=== PATIENT | female | born 1975 | race American Indian/Alaskan Native ===

== ENCOUNTER 2017-09-03 14:06 | Emergency (ER) | payer SELFPAY | END 2017-09-03 16:14 | disposition left against medical advice (07) | LOC: ED 14:06 | DX: R51 Headache (principal); Z53.21 Procedure and treatment not carried out due to patient leaving prior to being seen by health care provider ==

== ENCOUNTER 2017-12-05 11:15 | Inpatient (IN) | payer MEDICAID ==
[2017-12-05] MEDS ORDERED: ROBITUSSIN AC PO ONE (11:34)
[2017-12-05 12:13] LABS: Basophils % (Auto) 0.5 % (0.0-1.8); Eosinophils # (Auto) 0.2 K/mm3 (0.0-0.4); Eosinophils % (Auto) 1.4 % (0.0-4.3); Hematocrit 37.5 % (30.3-42.9); Hemoglobin 12.3 gm/dl (10.1-14.3); Lymphocytes # (Auto) 3.6 K/mm3 (1.2-5.4); Lymphocytes % (Auto) 33.3 % (13.4-35.0); Mean Corpuscular HGB Conc 33 % (30-34); Mean Corpuscular Hemoglobin 28 pg (28-32); Mean Corpuscular Volume 85 fl (79-97); Monocytes # (Auto) 0.3 K/mm3 (0.0-0.8); Monocytes % (Auto) 2.8 % (0.0-7.3); Platelet Count 355 K/mm3 (140-440); Red Blood Count 4.41 M/mm3 (3.65-5.03); Red Cell Distribution Width 13.8 % (13.2-15.2)
[2017-12-05 12:26] LABS: INR 0.91 (0.87-1.13); Partial Thromboplastin Time 25.5 Sec. (24.2-36.6)
[2017-12-05 12:31] LABS: Alanine Aminotransferase 11 units/L (7-56); Albumin 4.3 g/dL (3.9-5); BUN/Creatinine Ratio 11; Blood Urea Nitrogen 9 mg/dL (7-17); Calcium 8.6 mg/dL (8.4-10.2); Hemolysis Index 9
--- NOTE | 2017-12-05 12:55 | Emergency Department Report ---
HPI - General Chief Complaint: Dyspnea/Respdistress Time Seen by Provider: 12/05/17 11:34 - HPI HPI: 42-year-old female presents to the emergency department via EMS from home with complaint of shortness of breath, wheezing and a dry cough with coughing fits that she believes is an asthma exacerbation that started this morning. Patient does have a history of known asthma and has been intubated multiple times in the past secondary to her asthma. She received 7.5 mg of albuterol, 20 mg of Decadron and 2 mg of magnesium in route with EMS without much relief at first. She denies any tobacco or illicit drug use or abuse. She denies any fever, nausea, vomiting, chest pain but does say that she has different body aches secondary to this incessant cough. No recent travel or sick contacts at home. Her PCP is a Dr Saunders. ED Past Medical Hx - Past Medical History Previous Medical History?: Yes Hx Asthma: Yes - Surgical History Past Surgical History?: No - Social History Smoking Status: Never Smoker Substance Use Type: None - Medications Home Medications: Home Medications Medication Instructions Recorded Confirmed Last Taken Type Advair 500-50 Diskus 1 dose INHALATION BID 12/05/17 12/05/17 Unknown History Amitriptyline 10 mg PO HS 12/05/17 12/05/17 Unknown History Desmopressin 0.2 mg PO HS 12/05/17 12/05/17 Unknown History Elmiron 100 mg PO DAILY 12/05/17 12/05/17 Unknown History Klor-Con 20 mg PO DAILY 12/05/17 12/05/17 Unknown History Levothyroxine 88 mcg PO DAILY 12/05/17 12/05/17 Unknown History Loratadine 10 mg PO DAILY 12/05/17 12/05/17 Unknown History Pravastatin 40 mg PO HS 12/05/17 12/05/17 Unknown History ED Review of Systems ROS: Stated complaint: YASSINE Other details as noted in HPI Comment: All other systems reviewed and negative Constitutional: denies: chills, fever Eyes: denies: eye pain, eye discharge, vision change ENT: denies: ear pain, throat pain Respiratory: cough, shortness of breath, SOB with exertion, wheezing Cardiovascular: denies: palpitations, edema Gastrointestinal: denies: abdominal pain, nausea, diarrhea Genitourinary: denies: urgency, dysuria, discharge Musculoskeletal: myalgia. denies: joint swelling Skin: denies: rash, lesions Neurological: denies: headache, weakness, paresthesias Physical Exam - Physical Exam Vital Signs: Vital Signs 12/05/17 12/05/17 11:27 11:45 Temperature 98 F Pulse Rate 93 H 135 H Respiratory 16 30 H Rate Blood Pressure 135/93 Blood Pressure 124/96 [Left] O2 Sat by Pulse 100 92 Oximetry Physical Exam: GENERAL: The patient is well-developed well-nourished. HENT: Normocephalic. Atraumatic. Patient has moist mucous membranes. EYES: Extraocular motions are intact. Pupils equal reactive to light bilaterally. NECK: Supple. Trachea is midline. CHEST/LUNGS: There is mild to moderate wheezing throughout the chest. The patient has a bronchospastic cough with coughing fits. There is tachypnea and accessory muscle use. There is respiratory distress noted. HEART/CARDIOVASCULAR: Regular. There is moderate to severe tachycardia. There is no murmur. ABDOMEN: Abdomen is soft, nontender. Patient has normal bowel sounds. There is no abdominal distention. SKIN: Skin is warm and dry. NEURO: The patient is awake, alert, and oriented. The patient is cooperative. The patient has no focal neurologic deficits. The patient has normal speech. MUSCULOSKELETAL: There is no tenderness or deformity. There is no evidence of acute injury. ED Course Vital Signs 12/05/17 12/05/17 11:27 11:45 Temperature 98 F Pulse Rate 93 H 135 H Respiratory 16 30 H Rate Blood Pressure 135/93 Blood Pressure 124/96 [Left] O2 Sat by Pulse 100 92 Oximetry - ABG Interpretation Ph: [phone] PCO2: 20 PO2: 115 Bicarbonate: 16 Interpretation: respiratory alkalosis, metabolic alkalosis ED Medical Decision Making - Lab Data Result diagrams: 12/05/17 11:44 12/05/17 11:44 - EKG Data -: EKG Interpreted by Me EKG shows normal: sinus rhythm, axis, intervals, QRS complexes, ST-T waves Rate: tachycardia (114 bpm) - EKG Data When compared to previous EKG there are: previous EKG unavailable Interpretation: other (sinus tachycardia) - Radiology Data Radiology results: image reviewed interpreted by me: Chest x-ray does not show any acute process. There are no pleural effusions, obvious pneumonia and there is no pneumothorax. - Medical Decision Making Patient came in with bronchospasm and a severe dry cough with coughing fits and in respiratory distress. She had already received some steroids, magnesium and breathing treatments upon arrival. Patient was placed on BiPAP and continued to improve over the next 30 minutes to 1 hour. She has improved with the Bipap but still appears dependent on using it at this time. Chest x-ray does not show any acute process. Labs show some hypokalemia with potassium 3.1. The patient will require admission for further evaluation, serial steroids and nebs , and has been accepted for admission by the hospitalist, Dr Garcia. - Differential Diagnosis Asthma, Bronchitis, Pneumonia, PE Critical Care Time: Yes Critical care time in (mins) excluding proc time.: 35 Critical care attestation.: If time is entered above; I have spent that time in minutes in the direct care of this critically ill patient, excluding procedure time. Critical care time was spent on this patient and doing her initial evaluation, multiple re- evaluations, ordering interpretation of labs and imaging, BiPAP/Vent management. Critical Care Time: 35 minutes ED Disposition Clinical Impression: Hypokalemia Acute respiratory failure Qualifiers: Respiratory failure complication: hypoxia Qualified Code(s): J96.01 - Acute respiratory failure with hypoxia Status asthmaticus Qualifiers: Asthma severity: moderate Asthma persistence: unspecified Qualified Code(s): J45.902 - Unspecified asthma with status asthmaticus Disposition: OP ADMIT IP TO THIS HOSP Is pt being admited?: Yes Condition: Serious Time of Disposition: 14:57
--- NOTE | 2017-12-05 13:03 | History and Physical Report ---
History of Present Illness Chief complaint: I cant breathe History of present illness: 42 YO Female with Asthma, Obesity presents to ED for evaluation. Pt states that she has experienced shortness of breath, nonproductive cough and wheezing for the pat 2 days with worsening symptoms over the past 1 day. Pt symptoms not improved with increased nebulizer therapy. Pt was subsequently transported to [facility] for further care and evaluation. Pt seen and evaluated in ED and found to have Status Asthmaticus with Acute respiratory failure. Pt admitted to medical floor. No reports of fever, chills, CP, Palpitations, NVD, Syncope, Trauma, unilateral leg swelling, calf pain, prolonged immobility/travel, individual/ family history of DVT/PE. - Past History Past Medical History: other (Asthma.) Past Surgical History: No surgical history, Other (reviewed) Social history: single. denies: smoking, alcohol abuse Family history: hypertension Medications and Allergies Allergies Allergy/AdvReac Type Severity Reaction Status Date / Time granisetron [From Kytril] Allergy Angioedema Verified 12/05/17 11:32 topiramate [From Topamax] Allergy Angioedema Verified 12/05/17 11:32 Home Medications Medication Instructions Recorded Confirmed Last Taken Type Advair 500-50 Diskus 1 dose INHALATION BID 12/05/17 12/05/17 Unknown History Amitriptyline 10 mg PO HS 12/05/17 12/05/17 Unknown History Desmopressin 0.2 mg PO HS 12/05/17 12/05/17 Unknown History Elmiron 100 mg PO DAILY 12/05/17 12/05/17 Unknown History Klor-Con 20 mg PO DAILY 12/05/17 12/05/17 Unknown History Levothyroxine 88 mcg PO DAILY 12/05/17 12/05/17 Unknown History Loratadine 10 mg PO DAILY 12/05/17 12/05/17 Unknown History Pravastatin 40 mg PO HS 12/05/17 12/05/17 Unknown History Review of Systems Constitutional: no weight loss, no weight gain, no fever, no chills, no sweats, no night sweats Ears, nose, mouth and throat: no ear pain, no ear discharge, no tinnitis, no decreased hearing, no nose pain, no nasal congestion, no nasal discharge Breasts: no change in shape, no swelling, no mass Cardiovascular: no chest pain, no orthopnea, no palpitations, no rapid/ irregular heart beat, no edema, no syncope, no lightheadedness Respiratory: cough, shortness of breath, wheezing, no excessive sputum, no pain on inspiration, no sleep apnea Gastrointestinal: no nausea, no vomiting, no diarrhea, no constipation Genitourinary Female: no pelvic pain, no flank pain, no menorrhagia, no dysuria , no urinary frequency, no urgency Rectal: no pain, no incontinence, no bleeding Musculoskeletal: no neck stiffness, no neck pain, no shooting arm pain, no arm numbness/tingling, no low back pain, no shooting leg pain Integumentary: no rash, no pruritis, no redness, no sores, no wounds Neurological: no head injury, no transient paralysis, no paralysis, no weakness , no parathesias, no numbness, no tingling Psychiatric: no anxiety, no memory loss, no change in sleep habits, no sleep disturbances, no insomnia, no hypersomnia, no change in appetite, no change in libido Endocrine: no cold intolerance, no heat intolerance, no polyphagia, no excessive thirst, no polydipsia, no polyuria, no nocturia Hematologic/Lymphatic: no easy bruising, no easy bleeding, no lymphadenopathy, no lymphedema Allergic/Immunologic: no urticaria, no allergic rhinitis, no persistent infections, no anaphylaxis, no angioedema Exam - Constitutional Vitals: Temp Pulse Resp BP Pulse Ox 98 F 93 H 16 135/93 100 12/05/17 11:27 12/05/17 11:27 12/05/17 11:27 12/05/17 11:27 12/05/17 11:27 General appearance: Present: no acute distress, well-nourished - EENT Eyes: Present: PERRL ENT: hearing intact, clear oral mucosa - Neck Neck: Present: supple, normal ROM - Respiratory Respiratory effort: labored Respiratory: bilateral: diminished, wheezing - Cardiovascular Heart Sounds: Present: S1 & S2. Absent: rub, click - Extremities Extremities: pulses symmetrical, No edema Peripheral Pulses: within normal limits - Abdominal General gastrointestinal: Present: soft, non-tender, non-distended, normal bowel sounds Female genitourinary: Present: normal - Integumentary Integumentary: Present: clear, warm, dry - Musculoskeletal Musculoskeletal: gait normal, strength equal bilaterally - Psychiatric Psychiatric: appropriate mood/affect, intact judgment & insight - Neurologic Neurologic: CNII-XII intact, moves all extremities Results - Labs CBC & Chem 7: 12/05/17 11:44 12/05/17 11:44 Labs: Abnormal lab results 12/05/17 Range/Units 11:44 Potassium 3.1 L (3.6-5.0) mmol/L Carbon Dioxide 20 L (22-30) mmol/L Glucose 175 H (65-100) mg/dL Magnesium 2.50 H (1.7-2.3) mg/dL Assessment and Plan - Patient Problems (1) Status asthmaticus Current Visit: Yes Status: Acute Qualifiers: Asthma severity: moderate Plan to address problem: IV steroid therapy, supplemental oxygen, nebulizer therapy, NIPPV, magnesium sulfate, IV antibiotic therapy (2) Acute respiratory failure Current Visit: Yes Status: Acute Qualifiers: Respiratory failure complication: hypoxia Qualified Code(s): J96.01 - Acute respiratory failure with hypoxia Plan to address problem: Supplemental oxygen, nebulizer therapy, NIPPV, supportive care (3) Obesity Current Visit: Yes Status: Acute Qualifiers: Body mass index: BMI 30.0-30.9 Plan to address problem: Increased physical activity at d/c, balanced diet. (4) Hypothyroid Current Visit: Yes Status: Acute Qualifiers: Hypothyroidism type: acquired Qualified Code(s): E03.9 - Hypothyroidism, unspecified Plan to address problem: Resume synthroid, (5) DVT prophylaxis Current Visit: Yes Status: Acute Plan to address problem: scd to ble while in bed.
[2017-12-05] MEDS ORDERED: ZOFRAN IV PRN (13:04)
[2017-12-05] MEDS ORDERED: SODIUM CHLORIDE FLUSH SYRINGE 10 ML IV PRN (13:04)
[2017-12-05] MEDS ORDERED: MAGNESIUM SULFATE IV ONE (13:05)
[2017-12-05] MEDS ORDERED: PROVENTIL IH ONE ×2 (13:34→14:09)
[2017-12-05] MEDS ORDERED: ATROVENT IH ONE ×2 (13:35→14:09)
--- NOTE | 2017-12-05 14:25 | XRay Report ---
FINAL REPORT PROCEDURE: XR CHEST 1V AP TECHNIQUE: Chest radiograph anteroposterior view. CPT 32344 HISTORY: SOB COMPARISON: No prior studies are available for comparison. FINDINGS: Heart: Normal. Mediastinum/Vessels: Normal. Lungs/Pleural space: No infiltrate, effusion, or pneumothorax. Bony thorax: No acute osseous abnormality. Life support devices: None. IMPRESSION: No radiographic evidence of acute cardiopulmonary abnormality.
[2017-12-05] MEDS: TYLENOL PO PRN ×2 (16:10→20:33)
[2017-12-05] MEDS: PULMICORT IH SCH (20:03)
[2017-12-05] MEDS: BROVANA NEBU IH SCH (20:03)
[2017-12-05] MEDS: PROVENTIL IH PRN (20:16)
[2017-12-05] MEDS ORDERED: K-DUR PO ONE (21:16)
[2017-12-05] MEDS: DDAVP PO SCH (21:59)
[2017-12-05] MEDS: ELAVIL PO SCH (22:00)
[2017-12-05] MEDS: SODIUM CHLORIDE FLUSH SYRINGE 10 ML IV SCH (22:00)
[2017-12-05] MEDS ORDERED: ADVAIR INHALATION SCH (22:00)
[2017-12-05] MEDS: PRAVACHOL PO SCH (22:00)
[2017-12-05] MEDS ORDERED: AMITRIPTYLINE 10 MG PO SCH (22:00)
[2017-12-05] MEDS ORDERED: NON-FORMULARY (Pravastatin 40 MG) PO SCH (22:00)
[2017-12-05] MEDS ORDERED: DESMOPRESSIN 0.2 MG PO SCH (22:00)
[2017-12-06] MEDS: PERCOCET 5/325 PO PRN ×2 (03:14→09:49)
[2017-12-06] MEDS: SYNTHROID PO SCH (06:00)
[2017-12-06] MEDS: PROVENTIL IH PRN (06:23)
[2017-12-06] MEDS: BROVANA NEBU IH SCH ×2 (08:32→20:17)
[2017-12-06] MEDS: PULMICORT IH SCH ×2 (08:32→20:17)
[2017-12-06] MEDS: PROTONIX PO SCH (09:50)
[2017-12-06] MEDS: CLARITIN PO SCH (09:50)
[2017-12-06] MEDS: K-DUR PO SCH (09:51)
[2017-12-06] MEDS ORDERED: POTASSIUM CHLORIDE 20 MG PO SCH (10:00)
[2017-12-06] MEDS ORDERED: LEVOTHYROXINE 88 MCG PO SCH (10:00)
[2017-12-06] MEDS ORDERED: ELMIRON 100 MG PO SCH (10:00)
[2017-12-06] MEDS ORDERED: NON-FORMULARY (Loratadine 10 MG) PO SCH (10:00)
[2017-12-06] MEDS: SODIUM CHLORIDE FLUSH SYRINGE 10 ML IV SCH ×2 (11:11→22:45)
--- NOTE | 2017-12-06 11:38 | Progress Note ---
Assessment and Plan Assessment and plan: Acute asthma exacerbation. IV steroid therapy, supplemental oxygen, nebulizer therapy, NIPPV, magnesium sulfate, IV antibiotic therapy Acute hypoxemic respiratory failure. Supplemental oxygen, nebulizer therapy, NIPPV, supportive care Hypothyroidism. Cont. Synthroid Migraine h/a. Resume home imitrex hypokalemia. replete k History Interval history: No new issues. C/O h/a Hospitalist Physical - Constitutional Vitals: Temp Pulse Resp BP Pulse Ox 98.0 F 108 H 18 129/71 98 12/06/17 06:24 12/06/17 08:46 12/06/17 08:46 12/06/17 06:24 12/06/17 08:33 General appearance: Present: no acute distress, well-nourished - EENT Eyes: Present: PERRL, EOM intact ENT: hearing intact, clear oral mucosa, dentition normal - Neck Neck: Present: supple, normal ROM - Respiratory Respiratory effort: normal Respiratory: bilateral: diminished, wheezing - Cardiovascular Rhythm: regular Heart Sounds: Present: S1 & S2. Absent: gallop, rub - Extremities Extremities: no ischemia, No edema, Full ROM - Abdominal General gastrointestinal: soft, non-tender, non-distended, normal bowel sounds - Integumentary Integumentary: Present: clear, warm, dry - Neurologic Neurologic: CNII-XII intact, moves all extremities Results - Labs CBC & Chem 7: 12/05/17 11:44 12/05/17 11:44 Labs: Laboratory Last Values WBC 10.7 K/mm3 (4.5-11.0) 12/05/17 11:44 RBC 4.41 M/mm3 (3.65-5.03) 12/05/17 11:44 Hgb 12.3 gm/dl (10.1-14.3) 12/05/17 11:44 Hct 37.5 % (30.3-42.9) 12/05/17 11:44 MCV 85 fl (79-97) 12/05/17 11:44 MCH 28 pg (28-32) 12/05/17 11:44 MCHC 33 % (30-34) 12/05/17 11:44 RDW 13.8 % (13.2-15.2) 12/05/17 11:44 Plt Count 355 K/mm3 (140-440) 12/05/17 11:44 Lymph % (Auto) 33.3 % (13.4-35.0) 12/05/17 11:44 [place] % (Auto) 2.8 % (0.0-7.3) 12/05/17 11:44 Eos % (Auto) 1.4 % (0.0-4.3) 12/05/17 11:44 Baso % (Auto) 0.5 % (0.0-1.8) 12/05/17 11:44 Lymph # 3.6 K/mm3 (1.2-5.4) 12/05/17 11:44 [place] # 0.3 K/mm3 (0.0-0.8) 12/05/17 11:44 Eos # 0.2 K/mm3 (0.0-0.4) 12/05/17 11:44 Baso # 0.0 K/mm3 (0.0-0.1) 12/05/17 11:44 Seg Neutrophils % 62.0 % (40.0-70.0) 12/05/17 11:44 Seg Neutrophils # 6.7 K/mm3 (1.8-7.7) 12/05/17 11:44 PT 12.7 Sec. (12.2-14.9) 12/05/17 11:44 INR 0.91 (0.87-1.13) 12/05/17 11:44 APTT 25.5 Sec. (24.2-36.6) 12/05/17 11:44 D-Dimer 160.04 ng/mlDDU (0-234) 12/05/17 11:44 POC ABG pH 7.517 (7.35-7.45) H 12/05/17 14:00 POC ABG pCO2 20.6 (35-45) L 12/05/17 14:00 POC ABG pO2 115 (80-105) H 12/05/17 14:00 POC ABG HCO3 16.7 12/05/17 14:00 POC ABG Total CO2 17 12/05/17 14:00 POC ABG O2 Sat 99 12/05/17 14:00 POC ABG Base Excess -6 12/05/17 14:00 FiO2 21 % 12/05/17 14:00 Sodium 142 mmol/L (137-145) 12/05/17 11:44 Potassium 3.1 mmol/L (3.6-5.0) L 12/05/17 11:44 Chloride 100.8 mmol/L (98-107) 12/05/17 11:44 Carbon Dioxide 20 mmol/L (22-30) L 12/05/17 11:44 Anion Gap 24 mmol/L 12/05/17 11:44 BUN 9 mg/dL (7-17) 12/05/17 11:44 Creatinine 0.8 mg/dL (0.7-1.2) 12/05/17 11:44 Estimated GFR > 60 ml/min 12/05/17 11:44 BUN/Creatinine Ratio 11 % 12/05/17 11:44 Glucose 175 mg/dL (65-100) H 12/05/17 11:44 Calcium 8.6 mg/dL (8.4-10.2) 12/05/17 11:44 Magnesium 2.50 mg/dL (1.7-2.3) H 12/05/17 11:44 Total Bilirubin 0.20 mg/dL (0.1-1.2) 12/05/17 11:44 AST 15 units/L (5-40) 12/05/17 11:44 ALT 11 units/L (7-56) 12/05/17 11:44 Alkaline Phosphatase 77 units/L (35-129) 12/05/17 11:44 Troponin T < 0.010 ng/mL (0.00-0.029) 12/05/17 11:44 Total Protein 6.9 g/dL (6.3-8.2) 12/05/17 11:44 Albumin 4.3 g/dL (3.9-5) 12/05/17 11:44 Albumin/Globulin Ratio 1.7 % 12/05/17 11:44 HCG, Qual Negative (Negative) 12/05/17 11:44
[2017-12-06] MEDS: IMITREX PO PRN ×2 (13:08→22:37)
[2017-12-06] MEDS: PRAVACHOL PO SCH (22:37)
[2017-12-06] MEDS: DDAVP PO SCH (22:44)
[2017-12-06] MEDS: ELAVIL PO SCH (22:45)
[2017-12-07] MEDS: SYNTHROID PO SCH (06:31)
[2017-12-07] MEDS: PULMICORT IH SCH ×2 (08:31→19:37)
[2017-12-07] MEDS: BROVANA NEBU IH SCH ×2 (08:31→19:38)
[2017-12-07] MEDS: PROTONIX PO SCH (09:58)
[2017-12-07] MEDS: CLARITIN PO SCH (09:58)
[2017-12-07] MEDS: SODIUM CHLORIDE FLUSH SYRINGE 10 ML IV SCH ×2 (09:58→21:11)
[2017-12-07] MEDS: K-DUR PO SCH (09:58)
[2017-12-07] MEDS: IMITREX PO PRN (10:31)
--- NOTE | 2017-12-07 10:37 | Progress Note ---
Assessment and Plan Assessment and plan: Acute asthma exacerbation. IV steroid therapy, supplemental oxygen, nebulizer therapy, NIPPV, Empiric IV antibiotic therapy Acute hypoxemic respiratory failure. Supplemental oxygen, nebulizer therapy, NIPPV, supportive care Hypothyroidism. Cont. Synthroid Migraine h/a. Resolved with imitrex hypokalemia. replete k as needed History Interval history: No new issues. Breathing better. H/a resolved Hospitalist Physical - Constitutional Vitals: Temp Pulse Resp BP Pulse Ox 98.7 F 97 H 20 127/77 98 12/06/17 17:12 12/07/17 08:41 12/07/17 08:41 12/06/17 17:12 12/07/17 08:31 General appearance: Present: no acute distress, well-nourished - EENT Eyes: Present: PERRL, EOM intact ENT: hearing intact, clear oral mucosa, dentition normal - Neck Neck: Present: supple, normal ROM - Respiratory Respiratory effort: normal Respiratory: bilateral: diminished, wheezing - Cardiovascular Rhythm: regular Heart Sounds: Present: S1 & S2. Absent: gallop, rub - Extremities Extremities: no ischemia, No edema, Full ROM - Abdominal General gastrointestinal: soft, non-tender, non-distended, normal bowel sounds - Integumentary Integumentary: Present: clear, warm, dry - Neurologic Neurologic: CNII-XII intact, moves all extremities Results - Labs CBC & Chem 7: 12/05/17 11:44 12/05/17 11:44 Labs: Laboratory Last Values WBC 10.7 K/mm3 (4.5-11.0) 12/05/17 11:44 RBC 4.41 M/mm3 (3.65-5.03) 12/05/17 11:44 Hgb 12.3 gm/dl (10.1-14.3) 12/05/17 11:44 Hct 37.5 % (30.3-42.9) 12/05/17 11:44 MCV 85 fl (79-97) 12/05/17 11:44 MCH 28 pg (28-32) 12/05/17 11:44 MCHC 33 % (30-34) 12/05/17 11:44 RDW 13.8 % (13.2-15.2) 12/05/17 11:44 Plt Count 355 K/mm3 (140-440) 12/05/17 11:44 Lymph % (Auto) 33.3 % (13.4-35.0) 12/05/17 11:44 [place] % (Auto) 2.8 % (0.0-7.3) 12/05/17 11:44 Eos % (Auto) 1.4 % (0.0-4.3) 12/05/17 11:44 Baso % (Auto) 0.5 % (0.0-1.8) 12/05/17 11:44 Lymph # 3.6 K/mm3 (1.2-5.4) 12/05/17 11:44 [place] # 0.3 K/mm3 (0.0-0.8) 12/05/17 11:44 Eos # 0.2 K/mm3 (0.0-0.4) 12/05/17 11:44 Baso # 0.0 K/mm3 (0.0-0.1) 12/05/17 11:44 Seg Neutrophils % 62.0 % (40.0-70.0) 12/05/17 11:44 Seg Neutrophils # 6.7 K/mm3 (1.8-7.7) 12/05/17 11:44 PT 12.7 Sec. (12.2-14.9) 12/05/17 11:44 INR 0.91 (0.87-1.13) 12/05/17 11:44 APTT 25.5 Sec. (24.2-36.6) 12/05/17 11:44 D-Dimer 160.04 ng/mlDDU (0-234) 12/05/17 11:44 POC ABG pH 7.517 (7.35-7.45) H 12/05/17 14:00 POC ABG pCO2 20.6 (35-45) L 12/05/17 14:00 POC ABG pO2 115 (80-105) H 12/05/17 14:00 POC ABG HCO3 16.7 12/05/17 14:00 POC ABG Total CO2 17 12/05/17 14:00 POC ABG O2 Sat 99 12/05/17 14:00 POC ABG Base Excess -6 12/05/17 14:00 FiO2 21 % 12/05/17 14:00 Sodium 142 mmol/L (137-145) 12/05/17 11:44 Potassium 3.1 mmol/L (3.6-5.0) L 12/05/17 11:44 Chloride 100.8 mmol/L (98-107) 12/05/17 11:44 Carbon Dioxide 20 mmol/L (22-30) L 12/05/17 11:44 Anion Gap 24 mmol/L 12/05/17 11:44 BUN 9 mg/dL (7-17) 12/05/17 11:44 Creatinine 0.8 mg/dL (0.7-1.2) 12/05/17 11:44 Estimated GFR > 60 ml/min 12/05/17 11:44 BUN/Creatinine Ratio 11 % 12/05/17 11:44 Glucose 175 mg/dL (65-100) H 12/05/17 11:44 Calcium 8.6 mg/dL (8.4-10.2) 12/05/17 11:44 Magnesium 2.50 mg/dL (1.7-2.3) H 12/05/17 11:44 Total Bilirubin 0.20 mg/dL (0.1-1.2) 12/05/17 11:44 AST 15 units/L (5-40) 12/05/17 11:44 ALT 11 units/L (7-56) 12/05/17 11:44 Alkaline Phosphatase 77 units/L (35-129) 12/05/17 11:44 Troponin T < 0.010 ng/mL (0.00-0.029) 12/05/17 11:44 Total Protein 6.9 g/dL (6.3-8.2) 12/05/17 11:44 Albumin 4.3 g/dL (3.9-5) 12/05/17 11:44 Albumin/Globulin Ratio 1.7 % 12/05/17 11:44 HCG, Qual Negative (Negative) 12/05/17 11:44
[2017-12-07] MEDS: PROVENTIL IH PRN (12:19)
[2017-12-07] MEDS: ELAVIL PO SCH (21:09)
[2017-12-07] MEDS: DDAVP PO SCH (21:10)
[2017-12-07] MEDS: PRAVACHOL PO SCH (21:10)
[2017-12-08] MEDS: SYNTHROID PO SCH (05:24)
[2017-12-08 07:09] VITALS: BP 102/62
[2017-12-08] MEDS: BROVANA NEBU IH SCH (08:23)
[2017-12-08] MEDS: PULMICORT IH SCH (08:23)
[2017-12-08] MEDS: PROTONIX PO SCH (09:31)
[2017-12-08] MEDS: K-DUR PO SCH (09:31)
[2017-12-08] MEDS: SODIUM CHLORIDE FLUSH SYRINGE 10 ML IV SCH (09:32)
[2017-12-08] MEDS: CLARITIN PO SCH (09:32)
[2017-12-08] MEDS: IMITREX PO PRN (11:22)
--- NOTE | 2017-12-08 11:45 | Discharge Summary ---
Providers - Providers Date of Admission: 12/05/17 13:04 Date of discharge: 12/08/17 Attending physician: ODILON DELONG MD Primary care physician: DISASTER DIRECTOR Hospitalization Reason for admission: Acute asthma exacerbation Condition: Serious Pertinent studies: Chest x-ray acute cardiopulmonary process identified Hospital course: 42 YO Female with Asthma, Obesity presents to ED for evaluation. Pt states that she has experienced shortness of breath, nonproductive cough and wheezing for the pat 2 days with worsening symptoms over the past 1 day. Pt symptoms not improved with increased nebulizer therapy. Pt was subsequently transported to [facility] for further care and evaluation. Pt seen and evaluated in ED and found to have Status Asthmaticus with Acute respiratory failure. Pt admitted to medical floor. No reports of fever, chills, CP, Palpitations, NVD, Syncope, Trauma, unilateral leg swelling, calf pain, prolonged immobility/travel, individual/ family history of DVT/PE. Patient was admitted to the floor for the management of acute respiratory failure secondary to acute asthmatic exacerbation. And was treated appropriately. Patient also presents subsided, Patient was breathing comfortably on room air. Patient was discharged home starting dose of steroids. She said she has nebulizer machine and appropriate medications at home. Patient was hemodynamically stable at the time of discharge. Disposition: DC-01 TO HOME OR SELFCARE Time spent for discharge: 34 minutes - Discharge Diagnoses (1) Acute respiratory failure Status: Acute Qualifiers: Respiratory failure complication: hypoxia Qualified Code(s): J96.01 - Acute respiratory failure with hypoxia (2) Hypokalemia Status: Acute (3) Hypothyroid Status: Chronic Qualifiers: Hypothyroidism type: acquired Qualified Code(s): E03.9 - Hypothyroidism, unspecified (4) Obesity Status: Chronic Qualifiers: Body mass index: BMI 30.0-30.9 (5) Status asthmaticus Status: Acute Qualifiers: Asthma severity: moderate Asthma persistence: unspecified Qualified Code( s): J45.902 - Unspecified asthma with status asthmaticus Core Measure Documentation - Palliative Care Palliative Care/ Comfort Measures: Not Applicable - Core Measures Any of the following diagnoses?: none Exam - Physical Exam Narrative exam: Not in cardiopulmonary distress. The patient is obese. Vital signs as documented. Head exam is unremarkable. No scleral icterus . Neck is without jugular venous distension, thyromegaly, or carotid bruits. Lungs are clear to auscultation. Cardiac exam reveals regular rate and Rhythm. First and second heart sounds normal. No murmurs, rubs or gallops. Abdominal exam reveals normal bowel sounds, no masses, no organomegaly and no aortic enlargement. Extremities are nonedematous and both femoral and pedal pulses are normal. 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 No focal weakness. - Constitutional Vitals: Temp Pulse Resp BP Pulse Ox 98.6 F 77 16 102/62 97 12/08/17 06:19 12/08/17 08:26 12/08/17 08:26 12/08/17 06:19 12/08/17 06:19 Plan Activity: no restrictions Weight Bearing Status: Full Weight Bearing Diet: low fat Additional Instructions: follow up at [facility] in 1-2 weeks Follow up with: PRIMARY CARE, [Primary Care Provider] - 3-5 Days Prescriptions: Prednisone [predniSONE 10 mg (6-Day Pack, 21 Tabs)] 10 mg PO .TAPER #1 tab.ds.pk
== END 2017-12-08 13:30 | disposition home or self-care (01) | DRG 189 ==
LOC: ED 11:15 → 3A 13:04
PROVIDERS: ADMIT Internal Medicine; ATTEND Internal Medicine
PROC: 5A09357 Assistance with Respiratory Ventilation, Less than 24 Consecutive Hours, Continuous Positive Airway Pressure (ICD-10-PCS; principal; 2017-12-05)
PROC: 4A033R1 Measurement of Arterial Saturation, Peripheral, Percutaneous Approach (ICD-10-PCS; 2017-12-05)
DX: J96.01 Acute respiratory failure with hypoxia (principal); E03.9 Hypothyroidism, unspecified; E87.6 Hypokalemia; J45.902 Unspecified asthma with status asthmaticus; G43.909 Migraine, unspecified, not intractable, without status migrainosus; E66.9 Obesity, unspecified; Z68.30 Body mass index [BMI] 30.0-30.9, adult; Z82.49 Family history of ischemic heart disease and other diseases of the circulatory system; Z79.899 Other long term (current) drug therapy
CPT/HCPCS: 36415; 36600; 71045; 80053; 82803; 83735; 84484; 84703; 85025; 85379; 85610; 85730; 93005; 93010; 94640; 94760; A9270-GY; J2920; J3475

== ENCOUNTER 2018-01-31 16:42 | Emergency (ER) | payer MEDICAID, OTHER ==
[2018-01-31] MEDS ORDERED: DILAUDID IV ONE ×3 (16:55→21:20)
[2018-01-31] MEDS ORDERED: REGLAN IV ONE (16:55)
[2018-01-31] MEDS ORDERED: TORADOL IV ONE (16:55)
[2018-01-31] MEDS ORDERED: ZOFRAN IV ONE (16:55)
[2018-01-31] MEDS ORDERED: DILAUDID ONE ×2 (16:59→21:25)
[2018-01-31] MEDS ORDERED: TORADOL ONE (16:59)
[2018-01-31] MEDS ORDERED: ZOFRAN ONE (16:59)
[2018-01-31] MEDS ORDERED: NACL 0.9% 1000 ML 1,000 ML IV ONE (17:00)
[2018-01-31] MEDS ORDERED: NACL 0.9% 1000 ML 1,000 ML ONE (17:00)
[2018-01-31] MEDS ORDERED: BENADRYL IV ONE (17:11)
--- NOTE | 2018-01-31 17:13 | Emergency Department Report ---
HPI - General Chief Complaint: Abdominal Pain Time Seen by Provider: 01/31/18 16:55 - HPI HPI: Room 6 The patient is a 42-year-old female presenting with chief complaint of right lower quadrant abdominal pain. The patient states 2 days ago she developed intermittent pain in the right lower quadrant. The patient states today the pain intensified and became constant in nature. The patient missed to nausea but denies vomiting. She denies any history of dysuria or hematuria. Patient thinks she may have had a subjective fever. Patient denies any other forms of pain. The patient gets her pain score 10/10 Location: Right lower quadrant Duration: 3 Days Quality: Pain Severity:10/10 Modifying factors: [see above] Context: [see above] Mode of transportation: [not driving] ED Past Medical Hx - Past Medical History Hx Seizures: Yes (last sizure 12/01/2017 1st one in 2 years) Hx Asthma: Yes Additional medical history: Hypokalemia, hypercholesterolemia, hypothyroidism, interstitial cystitis - Surgical History Past Surgical History?: Yes Additional Surgical History: Hysterectomy 1993, kidney stone, thyroidectomy - Family History Family history: no significant - Social History Smoking Status: Never Smoker Substance Use Type: None (denies illicit drug use) - Medications Home Medications: Home Medications Medication Instructions Recorded Confirmed Last Taken Type Advair 500-50 Diskus 1 dose INHALATION BID 12/05/17 12/05/17 Unknown History Amitriptyline 10 mg PO HS 12/05/17 12/05/17 Unknown History Desmopressin 0.2 mg PO HS 12/05/17 12/05/17 Unknown History Elmiron 100 mg PO DAILY 12/05/17 12/05/17 Unknown History Klor-Con 20 mg PO DAILY 12/05/17 12/05/17 Unknown History Levothyroxine 88 mcg PO DAILY 12/05/17 12/05/17 Unknown History Loratadine 10 mg PO DAILY 12/05/17 12/05/17 Unknown History Pravastatin 40 mg PO HS 12/05/17 12/05/17 Unknown History Prednisone [predniSONE 10 mg 10 mg PO .TAPER #1 tab.ds.pk 12/08/17 Unknown Rx (6-Day Pack, 21 Tabs)] HYDROcodone/APAP 5-325 [[place] 1 - 2 each PO Q6HR PRN #14 tablet 01/31/18 Unknown Rx 5/325] Ibuprofen [Motrin 800 MG tab] 800 mg PO Q8HR PRN #20 tablet 01/31/18 Unknown Rx Promethazine [Phenergan TAB] 25 mg PO Q6HR PRN #20 tab 01/31/18 Unknown Rx ED Review of Systems ROS: Stated complaint: LRQ PAIN Other details as noted in HPI Constitutional: fever (subjective) Eyes: denies: eye pain ENT: denies: throat pain Respiratory: no symptoms reported Cardiovascular: denies: chest pain Endocrine: no symptoms reported Gastrointestinal: abdominal pain, nausea. denies: vomiting Genitourinary: denies: dysuria, hematuria Musculoskeletal: denies: back pain Neurological: denies: headache Physical Exam - Physical Exam Vital Signs: Vital Signs 01/31/18 17:04 Temperature 98.9 F Pulse Rate 96 H Respiratory 24 Rate Blood Pressure 130/76 O2 Sat by Pulse 97 Oximetry Physical Exam: GENERAL: The patient is well-developed well-nourished female writhing on stretcher appearing to be in significant pain. [] HEENT: Normocephalic. Atraumatic. Extraocular motions are intact. Patient has moist mucous membranes. NECK: Supple. Trachea midline CHEST/LUNGS: Clear to auscultation. There is no respiratory distress noted. HEART/CARDIOVASCULAR: Regular. There is no tachycardia. There is no gallop rub or murmur. ABDOMEN: Abdomen is soft, with tenderness to palpation in the right lower quadrant and right upper quadrant (with greatest pain in the right lower quadrant). Patient has normal bowel sounds. There is no abdominal distention. SKIN: There is no rash. There is no diaphoresis. NEURO: The patient is awake, alert, and oriented. The patient is cooperative. The patient has normal speech MUSCULOSKELETAL: There is no CVA tenderness. There is no evidence of acute injury. ED Course Vital Signs 01/31/18 17:04 Temperature 98.9 F Pulse Rate 96 H Respiratory 24 Rate Blood Pressure 130/76 O2 Sat by Pulse 97 Oximetry ED Medical Decision Making - Lab Data Result diagrams: 01/31/18 17:12 01/31/18 17:12 Laboratory Tests 01/31/18 01/31/18 01/31/18 17:03 17:12 17:12 WBC 8.2 RBC 4.30 Hgb 12.3 Hct 36.6 MCV 85 MCH 29 MCHC 34 RDW 13.8 Plt Count 354 Lymph % (Auto) 41.0 H Baxter % (Auto) 7.9 H Eos % (Auto) 2.8 Baso % (Auto) 0.7 Lymph # 3.4 Baxter # 0.6 Eos # 0.2 Baso # 0.1 Seg Neutrophils % 47.6 Seg Neutrophils # 3.9 Sodium 141 Potassium 3.7 Chloride 104.5 Carbon Dioxide 23 Anion Gap 17 BUN 7 Creatinine 1.0 Estimated GFR > 60 BUN/Creatinine Ratio 7 Glucose 97 Calcium 8.5 Total Bilirubin 0.20 AST 18 ALT 11 Alkaline Phosphatase 68 Total Protein 6.9 Albumin 4.2 Albumin/Globulin Ratio 1.6 Lipase 21 Urine Color Yellow Urine Turbidity Clear Urine pH 6.0 Ur Specific [place] 1.029 Urine Protein <15 mg/dl Urine Glucose (UA) Neg Urine Ketones Neg Urine Blood Mod Urine Nitrite Neg Urine Bilirubin Neg Urine Urobilinogen < 2.0 Ur Leukocyte Esterase Neg Urine WBC (Auto) 1.0 Urine RBC (Auto) 9.0 U Epithel Cells (Auto) 1.0 Urine Mucus Few - Radiology Data Radiology results: report reviewed (CT abdomen and pelvis, pelvic Doppler), image reviewed (CT abdomen and pelvis, pelvic Doppler) [facility] [address] [place] [address] Ultrasound Report Signed Patient: CECILIA MENG MR#: [id number] : 1975 Acct:[id number] Age/Sex: 42 / F ADM Date: 01/31/18 Loc: ED Attending Dr: Ordering Physician: LEIGH BULLARD MD Date of Service: 01/31/18 Procedure(s): US transvaginal Accession Number(s): [id number] cc: LEIGH BULLARD MD FINAL REPORT PROCEDURE: Transvaginal pelvic ultrasound with Doppler. TECHNIQUE: Real-time transvaginal sonography in multiple planes of the pelvis was performed with image documentation. Grayscale, color flow Doppler imaging and velocity spectral waveform analysis of the ovaries was employed (duplex imaging). CPT 16472 and 25104 HISTORY: Pelvic pain. COMPARISON: No prior studies are available for comparison. FINDINGS: The uterus has been removed. There is an ovary near the midline which is probably the right ovary. This ovary contains a complex cyst with septations that measures 1.4 centimeters in diameter. The right ovary also contains some normal appearing follicles. There is normal color flow present in the right ovary. There is also normal Doppler signal present. The left ovary is not visualized. IMPRESSION: Complex cyst in the right ovary. Normal ovarian blood flow. Transcribed By: VICKIE Dictated By: SADE ROBERSON MD Electronically Authenticated By: SADE ROBERSON MD Signed Date/Time: 01/31/182131 DD/ 31 TD/TT: 01/31/182131 [facility] [address] [place] [address] Cat Scan Report Signed Patient: CECILIA MENG MR#: [id number] : 1975 Acct:[id number] Age/Sex: 42 / F ADM Date: 01/31/18 Loc: ED Attending Dr: Ordering Physician: LEIGH BULLARD MD Date of Service: 01/31/18 Procedure(s): CT abdomen pelvis wo/w con Accession Number(s): [id number] cc: LEIGH BULLARD MD FINAL REPORT PROCEDURE: CT abdomen and pelvis without and with contrast. TECHNIQUE: Computerized axial tomography of the abdomen and pelvis was performed without contrast followed by computerized axial tomography of the abdomen and pelvis after the IV injection of iodinated nonionic contrast. HISTORY: Severe right lower quadrant pain. COMPARISON: No prior studies are available for comparison. FINDINGS: The lung bases are clear. There are no pleural effusions. The heart size is normal. The liver, pancreas and spleen appear normal. The gallbladder is present. The adrenal glands are not enlarged. Both kidneys appear normal in size and configuration. The abdominal aorta has a normal caliber. There is no retroperitoneal adenopathy. The unopacified gastrointestinal tract is unremarkable. A normal appendix is visible. The bladder is unremarkable. The uterus has been removed. The regional skeleton appears intact. There may be small cysts in each ovary. The right-sided mass is larger measuring 2.5 centimeters x 2.4 centimeters in cross-section. The regional skeleton appears intact. There is coarse calcification anterior to the vagina. This is of uncertain etiology. Urethral calcifications are not excluded. IMPRESSION: Previous hysterectomy. Possible ovarian cysts. Unusual calcification anterior to the vagina. Transcribed By: VICKIE Dictated By: SADE ROBERSON MD Electronically Authenticated By: SADE ROBERSON MD Signed Date/Time: 01/31 DD/ 04 TD/TT: 01/31/181904 - Medical Decision Making CT abdomen and pelvis shows calcifications on certain etiology. Possibility includes urethral calcifications from a recently passed stone - Differential Diagnosis renal colic, appendicitis, ovarian torsion Critical care attestation.: If time is entered above; I have spent that time in minutes in the direct care of this critically ill patient, excluding procedure time. ED Disposition Clinical Impression: Acute abdominal pain, Ovarian cyst Disposition: TO HOME OR SELFCARE Is pt being admited?: No Does the pt Need Aspirin: No Condition: Stable Instructions: Abdominal Pain (ED) Additional Instructions: Return to the emergency department immediately should you develop worsening symptoms, fever, inability to tolerate food or liquid or any other concerns. Prescriptions: HYDROcodone/APAP 5-325 [[place] 5/325] 1 - 2 each PO Q6HR PRN #14 tablet PRN Reason: Pain Ibuprofen [Motrin 800 MG tab] 800 mg PO Q8HR PRN #20 tablet PRN Reason: Pain, Moderate (4-6) Promethazine [Phenergan TAB] 25 mg PO Q6HR PRN #20 tab PRN Reason: Nausea Referrals: PRIMARY CARE, [Primary Care Provider] - 3-5 Days TINO MYERS MD [Staff Physician] - 3-5 Days (Dr. Myers is an PRESCRIPTION BENEFIT SPECIALIST. Please follow with her for further evaluation) Time of Disposition: 21:53
[2018-01-31] MEDS ORDERED: BENADRYL ONE (17:14)
[2018-01-31 17:31] LABS: Basophils # (Auto) 0.1 K/mm3 (0.0-0.1); Basophils % (Auto) 0.7 % (0.0-1.8); Eosinophils # (Auto) 0.2 K/mm3 (0.0-0.4); Eosinophils % (Auto) 2.8 % (0.0-4.3); Hematocrit 36.6 % (30.3-42.9); Hemoglobin 12.3 gm/dl (10.1-14.3); Lymphocytes # (Auto) 3.4 K/mm3 (1.2-5.4); Mean Corpuscular HGB Conc 34 % (30-34); Mean Corpuscular Hemoglobin 29 pg (28-32); Mean Corpuscular Volume 85 fl (79-97); Monocytes # (Auto) 0.6 K/mm3 (0.0-0.8); Monocytes % (Auto) 7.9 % (0.0-7.3); Platelet Count 354 K/mm3 (140-440); Red Cell Distribution Width 13.8 % (13.2-15.2)
[2018-01-31 17:49] LABS: Alanine Aminotransferase 11 units/L (7-56); Albumin 4.2 g/dL (3.9-5); BUN/Creatinine Ratio 7; Blood Urea Nitrogen 7 mg/dL (7-17); Calcium 8.5 mg/dL (8.4-10.2); Hemolysis Index 9; Lipase 21 units/L (13-60)
--- NOTE | 2018-01-31 19:06 | Cat Scan Report ---
FINAL REPORT PROCEDURE: CT abdomen and pelvis without and with contrast. TECHNIQUE: Computerized axial tomography of the abdomen and pelvis was performed without contrast followed by computerized axial tomography of the abdomen and pelvis after the IV injection of iodinated nonionic contrast. HISTORY: Severe right lower quadrant pain. COMPARISON: No prior studies are available for comparison. FINDINGS: The lung bases are clear. There are no pleural effusions. The heart size is normal. The liver, pancreas and spleen appear normal. The gallbladder is present. The adrenal glands are not enlarged. Both kidneys appear normal in size and configuration. The abdominal aorta has a normal caliber. There is no retroperitoneal adenopathy. The unopacified gastrointestinal tract is unremarkable. A normal appendix is visible. The bladder is unremarkable. The uterus has been removed. The regional skeleton appears intact. There may be small cysts in each ovary. The right-sided mass is larger measuring 2.5 centimeters x 2.4 centimeters in cross-section. The regional skeleton appears intact. There is coarse calcification anterior to the vagina. This is of uncertain etiology. Urethral calcifications are not excluded. IMPRESSION: Previous hysterectomy. Possible ovarian cysts. Unusual calcification anterior to the vagina.
[2018-01-31 19:19] LABS: Bilirubin,Urine NEG (Negative); Blood,Urine MOD (Negative); Color,Urine Yellow (Yellow); Mucus,Urine FEW /HPF; Protein,Urine <15 mg/dL mg/dL (Negative); Urobilinogen,Urine < 2.0 mg/dL (<2.0)
--- NOTE | 2018-01-31 21:19 | Ultrasound Report ---
FINAL REPORT PROCEDURE: Transabdominal pelvic ultrasound with Doppler. TECHNIQUE: Real-time transabdominal sonography in multiple planes of the pelvis was performed with image documentation. Grayscale, color flow Doppler imaging and velocity spectral waveform analysis of the ovaries was employed (duplex imaging). CPT 77023 and 04713 HISTORY: right pelvic pain. Assess for torsion COMPARISON: No prior studies are available for comparison. FINDINGS: The uterus has been removed. The right ovary measures 3.8 centimeters x 2.6 centimeters in cross-section. There is a complex cyst in the right ovary with a maximum dimension of 2.4 centimeters. There is normal ovarian blood flow demonstrated by Doppler spectral analysis. The left ovary is not visualized. The bladder is unremarkable. IMPRESSION: Complex cyst in the right ovary. Nonvisualization of the left ovary.
--- NOTE | 2018-01-31 21:33 | Ultrasound Report ---
FINAL REPORT PROCEDURE: Transvaginal pelvic ultrasound with Doppler. TECHNIQUE: Real-time transvaginal sonography in multiple planes of the pelvis was performed with image documentation. Grayscale, color flow Doppler imaging and velocity spectral waveform analysis of the ovaries was employed (duplex imaging). CPT 28014 and 65231 HISTORY: Pelvic pain. COMPARISON: No prior studies are available for comparison. FINDINGS: The uterus has been removed. There is an ovary near the midline which is probably the right ovary. This ovary contains a complex cyst with septations that measures 1.4 centimeters in diameter. The right ovary also contains some normal appearing follicles. There is normal color flow present in the right ovary. There is also normal Doppler signal present. The left ovary is not visualized. IMPRESSION: Complex cyst in the right ovary. Normal ovarian blood flow.
[2018-01-31 22:39] VITALS: BP 140/86
== END 2018-01-31 22:39 | disposition home or self-care (01) ==
LOC: ED 16:42
DX: N83.209 Unspecified ovarian cyst, unspecified side (principal); J45.909 Unspecified asthma, uncomplicated; E87.6 Hypokalemia; E78.00 Pure hypercholesterolemia, unspecified; Z90.710 Acquired absence of both cervix and uterus; E89.0 Postprocedural hypothyroidism
CPT/HCPCS: 36415; 74178; 76830; 80053; 81001; 83690; 85025; 93975; 96374; 96375; 96376; 99284; J1170; J1200; J1885; J2765; J7030; Q9967; J2405

== ENCOUNTER 2018-06-01 07:32 | Outpatient (CLI) | payer OTHER, MEDICAID ==
--- NOTE | 2018-06-02 01:50 | Pulmonary Function Test ---
SPIROMETRY: FVC 2.97 liters, which is 86% of the predicted. FEV1 is 2.65 liters, which is 94% of predicted. FEV1/FVC ratio is 89. Flow volume loop: FEF 25-75%, 4.04 liters per second, which is 132% of the predicted. MVV is 57. Lung volumes: TLC is 4.87, which is 84% of the predicted and DLCO is 90% of the predicted. IMPRESSION: Normal pulmonary function test. JOB# [id number] RSM/NTS
== END 2018-06-01 07:33 | disposition home or self-care (01) ==
LOC: PF 07:32
PROVIDERS: ATTEND Internal Medicine
DX: J45.909 Unspecified asthma, uncomplicated (principal); E03.9 Hypothyroidism, unspecified; E78.5 Hyperlipidemia, unspecified; E66.9 Obesity, unspecified; E78.00 Pure hypercholesterolemia, unspecified; Z90.710 Acquired absence of both cervix and uterus
CPT/HCPCS: 94060; 94726; 94729

== ENCOUNTER 2018-08-19 22:01 | Emergency (ER) | payer OTHER, MEDICAID ==
[2018-08-19 22:51] VITALS: BP 146/104
[2018-08-19] MEDS ORDERED: TYLENOL PO ONE (22:52)
--- NOTE | 2018-08-19 23:48 | XRay Report ---
PROCEDURE: XR KNEE 3V RT TECHNIQUE: Right knee radiographs, AP, lateral, and sunrise views. HISTORY: right knee pain COMPARISONS: None FINDINGS: Fracture (s) and/or Dislocation(s): None Alignment: Normal Joint space(s): Normal Soft tissues: Normal Bone mineralization: Minimal degree osteophyte formation is noted Foreign bodies: None IMPRESSION: No acute fracture Minimal degree of osteoarthritis This document is electronically signed by Josh Fleming MD., August 19 2018 11:46:56 PM ET
[2018-08-20] MEDS ORDERED: IBUPROFEN PO ONE (01:39)
[2018-08-20] MEDS ORDERED: IBUPROFEN ONE (01:39)
--- NOTE | 2018-08-20 01:53 | Emergency Department Report ---
ED Extremity Problem HPI - General Chief complaint: Extremity Injury, Lower Stated complaint: RIGHT KNEE PAIN/SWOLLEN Time Seen by Provider: 08/20/18 01:28 Source: patient Mode of arrival: Ambulatory Limitations: No Limitations - History of Present Illness Initial comments: Pt is a 42 yo female who presents to the ED with c/o right knee pain and edema t hat began 5 days ago. She denies any injury, fall, trauma, numbness, weakness, fever, erythema. She states that in 2014 she "fractured her right knee." she did not have a surgical procedure. Severity scale (0 -10): 4 - Related Data Home Medications Medication Instructions Recorded Confirmed Last Taken Advair 500-50 Diskus 1 dose INHALATION BID 12/05/17 04/17/18 04/17/18 Desmopressin 0.2 mg PO HS 12/05/17 04/17/18 04/16/18 Elmiron 100 mg PO TID 12/05/17 04/17/18 04/17/18 Levothyroxine 88 mcg PO DAILY 12/05/17 04/17/18 04/17/18 Loratadine 10 mg PO DAILY 12/05/17 04/17/18 04/16/18 Pravastatin 40 mg PO HS 12/05/17 04/17/18 04/16/18 Montelukast 10 mg PO HS 04/17/18 04/17/18 04/16/18 Spiriva 18 mcg IH DAILY 04/17/18 04/17/18 04/17/18 Previous Rx's Medication Instructions Recorded Last Taken Type Meloxicam [Mobic] 7.5 mg PO QDAY #30 tablet 08/20/18 Unknown Rx Allergies Allergy/AdvReac Type Severity Reaction Status Date / Time granisetron [From Kytril] Allergy Angioedema Verified 12/05/17 11:32 topiramate [From Topamax] Allergy Angioedema Verified 12/05/17 11:32 ED Review of Systems ROS: Stated complaint: RIGHT KNEE PAIN/SWOLLEN Other details as noted in HPI Comment: All other systems reviewed and negative ED Past Medical Hx - Past Medical History Previous Medical History?: Yes Hx Congestive Heart Failure: No Hx Diabetes: No Hx Seizures: Yes Hx Asthma: Yes Hx COPD: No Additional medical history: Hypokalemia, hypercholesterolemia, hypothyroidism, interstitial cystitis - Surgical History Past Surgical History?: Yes Additional Surgical History: Hysterectomy 1993, kidney stone, thyroidectomy - Social History Smoking Status: Never Smoker Substance Use Type: None - Medications Home Medications: Home Medications Medication Instructions Recorded Confirmed Last Taken Type Advair 500-50 Diskus 1 dose INHALATION BID 12/05/17 04/17/18 04/17/18 History Desmopressin 0.2 mg PO HS 12/05/17 04/17/18 04/16/18 History Elmiron 100 mg PO TID 12/05/17 04/17/18 04/17/18 History Levothyroxine 88 mcg PO DAILY 12/05/17 04/17/18 04/17/18 History Loratadine 10 mg PO DAILY 12/05/17 04/17/18 04/16/18 History Pravastatin 40 mg PO HS 12/05/17 04/17/18 04/16/18 History Montelukast 10 mg PO HS 04/17/18 04/17/18 04/16/18 History Spiriva 18 mcg IH DAILY 04/17/18 04/17/18 04/17/18 History Meloxicam [Mobic] 7.5 mg PO QDAY #30 tablet 08/20/18 Unknown Rx ED Physical Exam - General Limitations: No Limitations General appearance: alert, in no apparent distress - Head Head exam: Present: atraumatic, normocephalic - Eye Eye exam: Present: normal appearance - ENT ENT exam: Present: mucous membranes moist - Extremities Exam Extremities exam: Present: normal inspection, full ROM, normal capillary refill, other (TTP over the medial side of the right knee, no joint effusion, no warmth, no erythema, no joint laxity, FROM of the right knee, no LE edema). Absent: pedal edema, joint swelling - Neurological Exam Neurological exam: Present: alert, oriented X3 - Psychiatric Psychiatric exam: Present: normal affect, normal mood - Skin Skin exam: Present: warm, dry, intact ED Course Vital Signs 08/19/18 08/20/18 22:49 01:55 Temperature 98.6 F Pulse Rate 89 77 Respiratory 15 Rate Blood Pressure 146/104 O2 Sat by Pulse 99 Oximetry ED Medical Decision Making - Radiology Data Radiology results: report reviewed PROCEDURE: XR KNEE 3V RT TECHNIQUE: Right knee radiographs, AP, lateral, and sunrise views. HISTORY: right knee pain COMPARISONS: None FINDINGS: Fracture (s) and/or Dislocation(s): None Alignment: Normal Joint space(s): Normal Soft tissues: Normal Bone mineralization: Minimal degree osteophyte formation is noted Foreign bodies: None IMPRESSION: No acute fracture Minimal degree of osteoarthritis This document is electronically signed by oJsh Fleming MD., August 19 2018 11:46:56 PM ET - Medical Decision Making Pt is a 42 yo female who presents to the ED with c/o right knee pain and edema that began 5 days ago. She denies any injury, fall, trauma, numbness, weakness, fever, erythema. She states that in 2014 she "fractured her right knee." she did not have a surgical procedure. XR of the right knee shows mild osteoarthritis otherwise no acute process. Will give pt mobic and advised to follow up with PCP in the next 2-3 days. advised to use heat, ice, elevation. Return to the emergency room for any new or worsening symptoms. - Differential Diagnosis fracture, dislocation, strain, sprain, osteoarthritis, knee pain Critical care attestation.: If time is entered above; I have spent that time in minutes in the direct care of this critically ill patient, excluding procedure time. ED Disposition Clinical Impression: Right knee pain Qualifiers: Chronicity: acute Qualified Code(s): M25.561 - Pain in right knee Osteoarthritis of right knee Qualifiers: Osteoarthritis type: unspecified Qualified Code(s): M17.11 - Unilateral primary osteoarthritis, right knee Disposition: - TO HOME OR SELFCARE Is pt being admited?: No Does the pt Need Aspirin: No Condition: Stable Instructions: Osteoarthritis (ED), Arthralgia (ED) Additional Instructions: Follow up with your primary care doctor in the next 2-3 days. Take medication as prescribed. Use heat, ice, rest, elevation, and epsom salt bath. Return to the emergency room with any new or worsening symptoms. Prescriptions: Meloxicam [Mobic] 7.5 mg PO QDAY #30 tablet Referrals: [facility] [Primary Care Provider] - 2-3 Days Time of Disposition: 01:51 Print Language: DOMINICAN
== END 2018-08-20 01:55 | disposition home or self-care (01) ==
LOC: ED 22:01
DX: M25.561 Pain in right knee (principal); J45.909 Unspecified asthma, uncomplicated; E78.00 Pure hypercholesterolemia, unspecified; E87.6 Hypokalemia; E89.0 Postprocedural hypothyroidism; Z88.8 Allergy status to other drugs, medicaments and biological substances; Z90.710 Acquired absence of both cervix and uterus; Z87.442 Personal history of urinary calculi
CPT/HCPCS: 99283

== ENCOUNTER 2019-01-21 10:53 | Emergency (ER) | payer MEDICAID, OTHER ==
[2019-01-21 11:11] VITALS: BP 104/86
--- NOTE | 2019-01-21 11:15 | Event Note ---
ED Screening Note ED Screening Note: a/c migraine has no meds at home saw neuro for dx who did ct and it was normal called pcp who could not see her This initial assessment/diagnostic orders/clinical plan/treatment(s) is/are subject to change based on patients health status, clinical progression and re- assessment by fellow clinical providers in the ED. Further treatment and workup at subsequent clinical providers discretion. Patient/guardian urged not to elope from the ED as their condition may be serious if not clinically assessed and m anaged. Initial orders include: [facility] for rx
[2019-01-21] MEDS ORDERED: IBUPROFEN PO ONE (12:09)
[2019-01-21] MEDS ORDERED: NORCO 5/325 PO ONE (12:20)
--- NOTE | 2019-01-21 12:25 | Emergency Department Report ---
HPI - General Chief Complaint: Pain General Time Seen by Provider: 01/21/19 11:14 - HPI HPI: Room 33 The patient is a 40-year-old female presented with a chief complaint of pain all over. The patient states she's had a constant frontal headache for the past 3 days. Patient states she has additional pain in all of her joints. Patient denies ever having pain in all of her joints in the past. Patient denies any recent trauma. Patient denies history of fever. Patient currently gets her pain score 10/10. The patient states she had a negative lupus workup in September of this year Location: [See above] Duration: [See above] Quality: [See above] Severity: [See above] Timing: [See above] Context: [See above] Modifying factors: [See above] Associated signs and symptoms: [see above] ED Past Medical Hx - Past Medical History Hx Seizures: Yes Hx Asthma: Yes Additional medical history: Hypokalemia, hypercholesterolemia, hypothyroidism, interstitial cystitis - Surgical History Additional Surgical History: Hysterectomy 1993, kidney stone, thyroidectomy. Pulmonary embolism 2014 - Family History Family history: no significant - Social History Smoking Status: Never Smoker Substance Use Type: None (denies illicit drug use) - Medications Home Medications: Home Medications Medication Instructions Recorded Confirmed Last Taken Type Elmiron 100 mg PO TID 12/05/17 09/12/18 09/10/18 History Advair 500-50 Diskus 1 dose INHALATION BID 30 Days 09/13/18 Unknown Rx Desmopressin 0.2 mg PO HS 30 Days 09/13/18 Unknown Rx Desmopressin [Ddavp] 0.2 mg PO QHS tablet 09/13/18 Unknown Rx Elmiron 100 mg PO TID 09/13/18 Unknown Rx Ibuprofen [Motrin] 800 mg PO Q12HR 14 Days #28 tablet 09/13/18 Unknown Rx Levothyroxine 88 mcg PO DAILY #30 09/13/18 Unknown Rx Levothyroxine [Synthroid] 88 mcg PO DAILY@0600 tablet 09/13/18 Unknown Rx Loratadine 10 mg PO DAILY #30 09/13/18 Unknown Rx Loratadine [Claritin] 10 mg PO DAILY tablet 09/13/18 Unknown Rx Montelukast 10 mg PO HS #30 09/13/18 Unknown Rx Montelukast [Singulair] 10 mg PO QHS tablet 09/13/18 Unknown Rx Pantoprazole [Protonix] 40 mg PO QDAY #30 tablet 09/13/18 Unknown Rx Pravastatin 40 mg PO HS #30 09/13/18 Unknown Rx Pravastatin [Pravachol] 40 mg PO QHS tablet 09/13/18 Unknown Rx Spiriva 18 mcg IH DAILY #30 09/13/18 Unknown Rx Ibuprofen [Motrin 800 MG tab] 800 mg PO Q8HR PRN #20 tablet 01/21/19 Unknown Rx traMADol [Ultram] 50 mg PO Q6HR PRN #14 tablet 01/21/19 Unknown Rx ED Review of Systems ROS: Stated complaint: HEADACHES/BODY ACHES Other details as noted in HPI Constitutional: denies: fever Eyes: denies: eye pain ENT: denies: throat pain Respiratory: no symptoms reported Cardiovascular: denies: chest pain Endocrine: no symptoms reported Gastrointestinal: denies: abdominal pain Genitourinary: denies: dysuria Musculoskeletal: arthralgia Neurological: headache Physical Exam - Physical Exam Vital Signs: Vital Signs 01/21/19 11:09 Temperature 98.8 F Pulse Rate 103 H Respiratory 16 Rate Blood Pressure 104/86 O2 Sat by Pulse 98 Oximetry Physical Exam: GENERAL: The patient is well-developed well-nourished female sitting in chair not appear to be in acute distress. [] HEENT: Normocephalic. Atraumatic. Extraocular motions are intact. Patient has moist mucous membranes. NECK: Supple. No meningitic signs are noted. Trachea midline CHEST/LUNGS: Clear to auscultation. There is no respiratory distress noted. HEART/CARDIOVASCULAR: Regular. There is no tachycardia. There is no gallop rub or murmur. ABDOMEN: Abdomen is soft, nontender. Patient has normal bowel sounds. There is no abdominal distention. SKIN: There is no rash. There is no edema. There is no diaphoresis. NEURO: The patient is awake, alert, and oriented. The patient is cooperative. The patient has no focal neurologic deficits. The patient has normal speech. Cranial nerves II through XII grossly intact, no drift MUSCULOSKELETAL: There is no evidence of acute injury. ED Course Vital Signs 01/21/19 11:09 Temperature 98.8 F Pulse Rate 103 H Respiratory 16 Rate Blood Pressure 104/86 O2 Sat by Pulse 98 Oximetry ED Medical Decision Making - Lab Data Result diagrams: 01/21/19 12:34 01/21/19 12:34 Laboratory Tests 01/21/19 01/21/19 01/21/19 12:34 12:34 12:34 WBC 6.4 RBC 4.89 Hgb 13.9 Hct 41.6 MCV 85 MCH 29 MCHC 34 RDW 13.6 Plt Count 397 Lymph % (Auto) 40.9 H Falls % (Auto) 7.3 Eos % (Auto) 2.4 Baso % (Auto) 0.7 Lymph # 2.6 Falls # 0.5 Eos # 0.2 Baso # 0.0 Seg Neutrophils % 48.7 Seg Neutrophils # 3.1 ESR 29 Sodium 141 Potassium 3.8 Chloride 103.6 Carbon Dioxide 26 Anion Gap 15 BUN 8 Creatinine 0.8 Estimated GFR > 60 BUN/Creatinine Ratio 10 Glucose 106 H Calcium 9.6 Total Creatine Kinase 173 H TSH 0.219 L Free T4 1.57 H - Radiology Data Radiology results: report reviewed (CT head), image reviewed (CT head) [facility] [address] [place] [address] Cat Scan Report Signed Patient: CECILIA ALTAMIRANO MR# : [id number] : 1975 Acct:[id number] Age/Sex: 43 / F ADM Date: 01/21/19 Loc: ED Attending Dr: Ordering Physician: LEIGH BULLARD MD Date of Service: 01/21/19 Procedure(s): CT head/brain wo con Accession Number(s): [id number] cc: LEIGH BULLARD MD CT head/brain wo con INDICATION: Acute headache. TECHNIQUE: Routine CT head without contrast. All CT scans at this location are performed using CT dose reduction for ALARA by means of automated exposure control. COMPARISON: None. FINDINGS: BRAIN / INTRACRANIAL CONTENTS: No acute hemorrhage, mass effect, midline shift, or hydrocephalus. No appreciable acute large territorial or lacunar infarct. No chronic infarct or focal atrophy. Normal brain volume and ventricular/sulcal size for age. ORBITS: No significant abnormality of visualized orbits. SINUSES / MASTOIDS: No significant abnormality of visualized sinuses and mastoid air cells. ADDITIONAL FINDINGS: None. IMPRESSION: 1. Negative head CT. Signer Name: Ernie Schultz MD Signed: 01/21/2019 1:32 PM Workstation Name: [id number] Transcribed By: TIMOTHY Dictated By: Ernie Schultz MD Electronically Authenticated By: Ernie Schultz MD Signed Date/Time: 01/21/191331 DD/ 30 TD/TT: - Medical Decision Making The patient's labs specifically thyroid panel discussed with her. Patient sta emre she is taking Synthroid. Patient advised to follow up with her primary physician for potential decreasing of Synthroid dose. Patient given copy of her labs - Differential Diagnosis polyarthritis, ICH, intracranial mass, Critical care attestation.: If time is entered above; I have spent that time in minutes in the direct care of this critically ill patient, excluding procedure time. ED Disposition Clinical Impression: Polyarthritis, Headache, Hyperthyroidism Disposition: TO HOME OR SELFCARE Is pt being admited?: No Does the pt Need Aspirin: No Condition: Stable Instructions: Arthralgia (ED) Additional Instructions: Return to the emergency department should you develop worsening symptoms, inability to tolerate food or liquids, high fever or any other concerns Prescriptions: Ibuprofen [Motrin 800 MG tab] 800 mg PO Q8HR PRN #20 tablet PRN Reason: pain traMADol [Ultram] 50 mg PO Q6HR PRN #14 tablet PRN Reason: Pain Referrals: PRIMARY CARE, [Primary Care Provider] - 3-5 Days Time of Disposition: 14:04
[2019-01-21] MEDS ORDERED: IBUPROFEN ONE (12:26)
[2019-01-21 12:48] LABS: Basophils % (Auto) 0.7 % (0.0-1.8); Eosinophils # (Auto) 0.2 K/mm3 (0.0-0.4); Eosinophils % (Auto) 2.4 % (0.0-4.3); Hematocrit 41.6 % (30.3-42.9); Hemoglobin 13.9 gm/dl (10.1-14.3); Lymphocytes # (Auto) 2.6 K/mm3 (1.2-5.4); Lymphocytes % (Auto) 40.9 % (13.4-35.0); Mean Corpuscular HGB Conc 34 % (30-34); Mean Corpuscular Volume 85 fl (79-97); Monocytes # (Auto) 0.5 K/mm3 (0.0-0.8); Monocytes % (Auto) 7.3 % (0.0-7.3); Platelet Count 397 K/mm3 (140-440); Red Blood Count 4.89 M/mm3 (3.65-5.03); Red Cell Distribution Width 13.6 % (13.2-15.2)
[2019-01-21 13:00] LABS: BUN/Creatinine Ratio 10; Blood Urea Nitrogen 8 mg/dL (7-17); Calcium 9.6 mg/dL (8.4-10.2); Hemolysis Index 3
[2019-01-21 13:34] LABS: Free T4 (Free Thyroxine) 1.57 ng/dL (0.76-1.46)
--- NOTE | 2019-01-21 13:36 | Cat Scan Report ---
CT head/brain wo con INDICATION: Acute headache. TECHNIQUE: Routine CT head without contrast. All CT scans at this location are performed using CT dos e reduction for ALARA by means of automated exposure control. COMPARISON: None. FINDINGS: BRAIN / INTRACRANIAL CONTENTS: No acute hemorrhage, mass effect, midline shift, or hydrocephalus. No appreciable acute large territorial or lacunar infarct. No chronic infarct or focal atrophy. Normal b rain volume and ventricular/sulcal size for age. ORBITS: No significant abnormality of visualized orbits. SINUSES / MASTOIDS: No significant abnormality of visualized sinuses and mastoid air cells. ADDITIONAL FINDINGS: None. IMPRESSION: 1. Negative head CT. Signer Name: Ernie Schultz MD Signed: 01/21/2019 1:32 PM Workstation Name: [id number]
[2019-01-21 13:56] LABS: Erythrocyte Sedimentation Rate 29 mm/Hr (0-20)
[2019-01-21] MEDS ORDERED: BENADRYL PO ONE (14:01)
== END 2019-01-21 14:25 | disposition home or self-care (01) ==
LOC: ED 10:53
DX: E05.90 Thyrotoxicosis, unspecified without thyrotoxic crisis or storm (principal); M13.0 Polyarthritis, unspecified; J45.909 Unspecified asthma, uncomplicated; E78.00 Pure hypercholesterolemia, unspecified; Z86.711 Personal history of pulmonary embolism; Z79.01 Long term (current) use of anticoagulants; Z90.710 Acquired absence of both cervix and uterus; Z79.899 Other long term (current) drug therapy; Z88.8 Allergy status to other drugs, medicaments and biological substances; Z87.442 Personal history of urinary calculi
CPT/HCPCS: 36415; 70450; 80048; 82550; 84439; 84443; 85025; 85652

== ENCOUNTER 2020-03-18 15:43 | Emergency (ER) | payer OTHER ==
--- NOTE | 2020-03-18 15:54 | Event Note ---
ED Screening Note Date of service: 03/18/20 Time: 15:53 ED Screening Note: 44-year-old -Citizen Of [place] female presents to the emergency room for 1 week history of right upper quadrant. She denies any vaginal bleeding vaginal discharge no hematuria. This initial assessment/diagnostic orders/clinical plan/treatment(s) is/are subject to change based on patients health status, clinical progression and re- assessment by fellow clinical providers in the ED. Further treatment and workup at subsequent clinical providers discretion. Patient/guardian urged not to elope from the ED as their condition may be serious if not clinically assessed and managed. Initial orders include:
[2020-03-18 16:17] LABS: Basophils # (Auto) 0.1 K/mm3 (0.0-0.1); Basophils % (Auto) 0.5 % (0.0-1.8); Eosinophils % (Auto) 0.2 % (0.0-4.3); Hematocrit 37.7 % (30.3-42.9); Hemoglobin 12.3 gm/dl (10.1-14.3); Lymphocytes # (Auto) 3.1 K/mm3 (1.2-5.4); Lymphocytes % (Auto) 28.1 % (13.4-35.0); Mean Corpuscular HGB Conc 33 % (30-34); Mean Corpuscular Volume 87 fl (79-97); Monocytes # (Auto) 0.7 K/mm3 (0.0-0.8); Monocytes % (Auto) 6.5 % (0.0-7.3); Platelet Count 378 K/mm3 (140-440); Red Blood Count 4.35 M/mm3 (3.65-5.03); Red Cell Distribution Width 14.3 % (13.2-15.2)
[2020-03-18 16:32] LABS: Alanine Aminotransferase 10 units/L (7-56); Albumin 4.6 g/dL (3.9-5); BUN/Creatinine Ratio 11; Blood Urea Nitrogen 11 mg/dL (7-17); Calcium 9.3 mg/dL (8.4-10.2); Hemolysis Index 19
[2020-03-18 17:28] LABS: HCG Qualitative,Urine Negative (Negative)
[2020-03-18 17:33] LABS: Bilirubin,Urine NEG (Negative); Blood,Urine MOD (Negative); Color,Urine Yellow (Yellow); Mucus,Urine FEW /HPF; Protein,Urine <15 mg/dL mg/dL (Negative); Urobilinogen,Urine < 2.0 mg/dL (<2.0); WBC,Urine < 1.0 /HPF (0.0-6.0)
--- NOTE | 2020-03-18 19:18 | Cat Scan Report ---
CT abdomen pelvis w con INDICATION: Right abdominal pain. TECHNIQUE: All CT scans at this location are performed using CT dose reduction for ALARA by means of automated e xposure control. COMPARISON: 01/31/2018 FINDINGS: Lung bases are clear of acute disease. Gallbladder is mostly collapsed, with no obvious stones. Liver , spleen, pancreas, kidneys and adrenals are negative. Abdominal aorta is normal in size. No adenopat hy. Pelvis Normal appendix. Terminal ileum and proximal colon are unremarkable. Large calcification at the base of the bladder extends inferiorly in the region of the urethra. Exact etiology of this calcification is not known, but it has enlarged slightly in the two-year interval. Bladder is otherwise negative. Uterus is absent. Ovaries appear unremarkable. No free fluid or inflammation. No significant bowel ab normalities. No significant skeletal lesions. IMPRESSION: 1. No acute abnormalities. 2. Large, coarse calcification at the base of the bladder, possibly between the bladder and vagina, e xtending inferiorly in the region of the urethra or vagina. Etiology is uncertain, but it is unchange d in 2 years. Signer Name: Keith Downing MD Signed: 03/18/2020 7:14 PM Workstation Name: [id number]
[2020-03-18 22:12] VITALS: BP 115/62
[2020-03-18] MEDS ORDERED: KETOROLAC 30 MG/1 ML INJ IV STA (22:15)
--- NOTE | 2020-03-18 22:23 | Emergency Department Report ---
ED Abdominal Pain HPI - General Chief Complaint: Abdominal Pain Stated Complaint: BACK/RT SIDE PAIN Time Seen by Provider: 03/18/20 20:11 Source: patient Mode of arrival: Ambulatory Limitations: No Limitations - History of Present Illness Initial Comments: 44-year-old F [place] female 1 month status post bladder surgery presents emerged department complaining of 1 week history of right upper quadrant pain that radiates to the flank associated with nausea and presyncope upon standing. No hemoptysis no hematemesis no hematochezia no hematuria no fever, chills, sweats no chest pain or palpitations. No odynophagia or dysphagia. No known sick contacts no rashes. No suspicion of an STD. MD Complaint: abdominal pain Migration to: no migration Severity scale (0 -10): 8 Quality: aching, dull Consistency: constant Improves With: nothing Worsens With: nothing Associated Symptoms: denies: nausea, vomiting, fever, constipation, dysuria, hematuria, anorexia - Related Data Home Medications Medication Instructions Recorded Confirmed Last Taken Elmiron 100 mg PO TID 12/05/17 09/12/18 09/10/18 Previous Rx's Medication Instructions Recorded Last Taken Type Advair 500-50 Diskus 1 dose INHALATION BID 30 Days 09/13/18 Unknown Rx Desmopressin 0.2 mg PO HS 30 Days 09/13/18 Unknown Rx Desmopressin [Ddavp] 0.2 mg PO QHS tablet 09/13/18 Unknown Rx Elmiron 100 mg PO TID 09/13/18 Unknown Rx Ibuprofen [Motrin] 800 mg PO Q12HR 14 Days #28 tablet 09/13/18 Unknown Rx Levothyroxine 88 mcg PO DAILY #30 09/13/18 Unknown Rx Levothyroxine [Synthroid] 88 mcg PO DAILY@0600 tablet 09/13/18 Unknown Rx Loratadine 10 mg PO DAILY #30 09/13/18 Unknown Rx Loratadine (Nf) [Claritin (Nf)] 10 mg PO DAILY tablet 09/13/18 Unknown Rx Montelukast 10 mg PO HS #30 09/13/18 Unknown Rx Montelukast [Singulair] 10 mg PO QHS tablet 09/13/18 Unknown Rx Pantoprazole [Protonix] 40 mg PO QDAY #30 tablet 09/13/18 Unknown Rx Pravastatin 40 mg PO HS #30 09/13/18 Unknown Rx Pravastatin [Pravachol] 40 mg PO QHS tablet 09/13/18 Unknown Rx Spiriva 18 mcg IH DAILY #30 09/13/18 Unknown Rx Ibuprofen [Motrin 800 MG tab] 800 mg PO Q8HR PRN #20 tablet 01/21/19 Unknown Rx traMADoL [Ultram] 50 mg PO Q6HR PRN #14 tablet 01/21/19 Unknown Rx Ketorolac [Toradol] 10 mg PO Q6H PRN #14 tablet 03/18/20 Unknown Rx Allergies Allergy/AdvReac Type Severity Reaction Status Date / Time granisetron [From Kytril] Allergy Angioedema Verified 12/05/17 11:32 topiramate [From Topamax] Allergy Angioedema Verified 01/21/19 10:55 ED Review of Systems ROS: Stated complaint: BACK/RT SIDE PAIN Other details as noted in HPI Comment: All other systems reviewed and negative ED Past Medical Hx - Past Medical History Previous Medical History?: Yes Hx Congestive Heart Failure: No Hx Diabetes: No Hx Renal Disease: Yes Hx Seizures: Yes Hx Asthma: Yes Hx COPD: No Additional medical history: Hypokalemia, hypercholesterolemia, hypothyroidism, interstitial cystitis - Surgical History Past Surgical History?: Yes Additional Surgical History: Hysterectomy 1993, kidney stone, thyroidectomy. Pulmonary embolism 2014 - Social History Smoking Status: Current Every Day Smoker Substance Use Type: None - Medications Home Medications: Home Medications Medication Instructions Recorded Confirmed Last Taken Type Elmiron 100 mg PO TID 12/05/17 09/12/18 09/10/18 History Advair 500-50 Diskus 1 dose INHALATION BID 30 Days 09/13/18 Unknown Rx Desmopressin 0.2 mg PO HS 30 Days 09/13/18 Unknown Rx Desmopressin [Ddavp] 0.2 mg PO QHS tablet 09/13/18 Unknown Rx Elmiron 100 mg PO TID 09/13/18 Unknown Rx Ibuprofen [Motrin] 800 mg PO Q12HR 14 Days #28 tablet 09/13/18 Unknown Rx Levothyroxine 88 mcg PO DAILY #30 09/13/18 Unknown Rx Levothyroxine [Synthroid] 88 mcg PO DAILY@0600 tablet 09/13/18 Unknown Rx Loratadine 10 mg PO DAILY #30 09/13/18 Unknown Rx Loratadine (Nf) [Claritin (Nf)] 10 mg PO DAILY tablet 09/13/18 Unknown Rx Montelukast 10 mg PO HS #30 09/13/18 Unknown Rx Montelukast [Singulair] 10 mg PO QHS tablet 09/13/18 Unknown Rx Pantoprazole [Protonix] 40 mg PO QDAY #30 tablet 09/13/18 Unknown Rx Pravastatin 40 mg PO HS #30 09/13/18 Unknown Rx Pravastatin [Pravachol] 40 mg PO QHS tablet 09/13/18 Unknown Rx Spiriva 18 mcg IH DAILY #30 09/13/18 Unknown Rx Ibuprofen [Motrin 800 MG tab] 800 mg PO Q8HR PRN #20 tablet 01/21/19 Unknown Rx traMADoL [Ultram] 50 mg PO Q6HR PRN #14 tablet 01/21/19 Unknown Rx Ketorolac [Toradol] 10 mg PO Q6H PRN #14 tablet 03/18/20 Unknown Rx ED Physical Exam - General Limitations: No Limitations General appearance: alert, in no apparent distress - Head Head exam: Present: atraumatic, normocephalic - Eye Eye exam: Present: normal appearance, PERRL, EOMI Pupils: Present: normal accommodation - ENT ENT exam: Present: normal exam, normal orophraynx, mucous membranes moist, TM's normal bilaterally - Neck Neck exam: Present: normal inspection - Respiratory Respiratory exam: Present: normal lung sounds bilaterally. Absent: respiratory distress - Cardiovascular Cardiovascular Exam: Present: regular rate, normal rhythm. Absent: systolic murmur, diastolic murmur, rubs, gallop - GI/Abdominal GI/Abdominal exam: Present: soft, tenderness (Tenderness to the right upper quadrant and right lower quadrant area), normal bowel sounds. Absent: hypoactive bowel sounds, mass, bruit, pulsatile mass, hernia - Extremities Exam Extremities exam: Present: normal inspection, normal capillary refill - Back Exam Back exam: Present: normal inspection. Absent: CVA tenderness (R), CVA tenderness (L) - Neurological Exam Neurological exam: Present: alert, oriented X3, CN II-XII intact - Psychiatric Psychiatric exam: Present: normal affect, normal mood - Skin Skin exam: Present: warm, dry, intact, normal color. Absent: rash ED Course Vital Signs 03/18/20 03/18/20 15:46 22:11 Temperature 98.3 F 98.2 F Pulse Rate 122 H 90 Respiratory 18 18 Rate Blood Pressure 118/75 Blood Pressure 115/62 [Right] O2 Sat by Pulse 97 98 Oximetry ED Medical Decision Making - Lab Data Result diagrams: 03/18/20 15:53 03/18/20 15:53 Lab Results 03/18/20 03/18/20 03/18/20 Range/Units 15:53 15:53 17:07 WBC 11.1 H (4.5-11.0) K/mm3 RBC 4.35 (3.65-5.03) M/mm3 Hgb 12.3 (10.1-14.3) gm/dl Hct 37.7 (30.3-42.9) % MCV 87 (79-97) fl MCH 28 (28-32) pg MCHC 33 (30-34) % RDW 14.3 (13.2-15.2) % Plt Count 378 (140-440) K/mm3 Lymph % (Auto) 28.1 (13.4-35.0) % Mineral % (Auto) 6.5 (0.0-7.3) % Eos % (Auto) 0.2 (0.0-4.3) % Baso % (Auto) 0.5 (0.0-1.8) % Lymph # (Auto) 3.1 (1.2-5.4) K/mm3 Mineral # (Auto) 0.7 (0.0-0.8) K/mm3 Eos # (Auto) 0.0 (0.0-0.4) K/mm3 Baso # (Auto) 0.1 (0.0-0.1) K/mm3 Seg Neutrophils % 64.7 (40.0-70.0) % Seg Neutrophils # 7.2 (1.8-7.7) K/mm3 Sodium 138 (137-145) mmol/L Potassium 4.0 (3.6-5.0) mmol/L Chloride 103.5 (98-107) mmol/L Carbon Dioxide 23 (22-30) mmol/L Anion Gap 16 mmol/L BUN 11 (7-17) mg/dL Creatinine 1.0 (0.6-1.2) mg/dL Estimated GFR > 60 ml/min BUN/Creatinine Ratio 11 % Glucose 134 H (65-100) mg/dL Calcium 9.3 (8.4-10.2) mg/dL Total Bilirubin 0.20 (0.1-1.2) mg/dL AST 13 (5-40) units/L ALT 10 (7-56) units/L Alkaline Phosphatase 69 (35-129) units/L Total Protein 6.7 (6.3-8.2) g/dL Albumin 4.6 (3.9-5) g/dL Albumin/Globulin Ratio 2.2 % Urine Color Yellow (Yellow) Urine Turbidity Clear (Clear) Urine pH 5.0 (5.0-7.0) Ur Specific [place] 1.018 (1.003-1.030) Urine Protein <15 mg/dl (Negative) mg/dL Urine Glucose (UA) Neg (Negative) mg/dL Urine Ketones Neg (Negative) mg/dL Urine Blood Mod (Negative) Urine Nitrite Neg (Negative) Ur Reducing Substances Not Reportable Urine Bilirubin Neg (Negative) Urine Ictotest Not Reportable Urine Urobilinogen < 2.0 (<2.0) mg/dL Ur Leukocyte Esterase Neg (Negative) Urine WBC (Auto) < 1.0 (0.0-6.0) /HPF Urine RBC (Auto) 3.0 (0.0-6.0) /HPF U Epithel Cells (Auto) 2.0 (0-13.0) /HPF Urine Mucus Few /HPF Urine HCG, Qual Negative (Negative) - Radiology Data Radiology results: report reviewed [facility] [address] [place] [address] Cat Scan Report Signed Patient: CECILIA ALTAMIRANO MR# : [id number] : 1975 Acct:[id number] Age/Sex: 44 / F ADM Date: 03/18/20 Loc: ED Attending Dr: Ordering Physician: TEDDY RENEE Date of Service: 03/18/20 Procedure(s): CT abdomen pelvis w con Accession Number(s): [id number] cc: TEDDY RENEE CT abdomen pelvis w con INDICATION: Right abdominal pain. TECHNIQUE: All CT scans at this location are performed using CT dose reduction for ALARA by means of automated exposure control. COMPARISON: 01/31/2018 FINDINGS: Lung bases are clear of acute disease. Gallbladder is mostly collapsed, with no obvious stones. Liver, spleen, pancreas, kidneys and adrenals are negative. Abdominal aorta is normal in size. No adenopathy. Pelvis Normal appendix. Terminal ileum and proximal colon are unremarkable. Large calcification at the base of the bladder extends inferiorly in the region of the urethra. Exact etiology of this calcification is not known, but it has enlarged slightly in the two-year interval. Bladder is otherwise negative. Uterus is absent. Ovaries appear unremarkable. No free fluid or inflammation. No significant bowel abnormalities. No significant skeletal lesions. IMPRESSION: 1. No acute abnormalities. 2. Large, coarse calcification at the base of the bladder, possibly between the bladder and vagina, extending inferiorly in the region of the urethra or vagina. Etiology is uncertain, but it is unchanged in 2 years. Signer Name: Keith Downing MD Signed: 03/18/2020 7:14 PM Workstation Name: [id number] Transcribed By: TM Dictated By: Keith Downing MD Electronically Authenticated By: Keith Downing MD Signed Date/Time: 03/18/201913 DD/ 06 TD/TT: - Medical Decision Making This patient presents with abdominal pain of unclear etiology. A CT scan was performed to evaluate for potential causes of the abdominal pain, however, neither the clinical exam nor the CT has identified an emergent etiology for the abdominal pain. Specifically, given the benign exam, the laboratory studies, and unremarkable CT, I have a very low suspicion for appendicitis, ischemic bowel, bowel perforation, or any other life threatening disease. I have discussed with the patient the level of uncertainty with undifferentiated abdominal pain and clearly explained the need to follow-up as noted on the discharge instructions, or return to the Emergency Department immediately if the pain worsens, develops fever, persistent and uncontrollable vomiting, or for any new symptoms or concerns. Critical care attestation.: If time is entered above; I have spent that time in minutes in the direct care of this critically ill patient, excluding procedure time. ED Disposition Clinical Impression: Abdominal pain Disposition: DC-01 TO HOME OR SELFCARE Is pt being admited?: No Does the pt Need Aspirin: No Condition: Stable Instructions: Abdominal Pain (ED) Additional Instructions: Please sure to follow-up with your primary care provider for further evaluation of this abdominal pain at this present time no urgent or emergent causes were identified Prescriptions: Ketorolac [Toradol] 10 mg PO Q6H PRN #14 tablet PRN Reason: Pain Referrals: PRIMARY CARE,MD [Primary Care Provider] - 3-5 Days
== END 2020-03-18 23:16 | disposition home or self-care (01) ==
LOC: ED 15:43
DX: R10.11 Right upper quadrant pain (principal); R11.0 Nausea; J45.909 Unspecified asthma, uncomplicated; F17.200 Nicotine dependence, unspecified, uncomplicated; E78.00 Pure hypercholesterolemia, unspecified; E05.00 Thyrotoxicosis with diffuse goiter without thyrotoxic crisis or storm; Z90.710 Acquired absence of both cervix and uterus; Z79.899 Other long term (current) drug therapy; Z88.6 Allergy status to analgesic agent
CPT/HCPCS: 36415; 74177; 80053; 81001; 81025; 85025; 96374; 99284; J1885; Q9967

== ENCOUNTER 2021-05-05 11:16 | Observation (INO) | payer MEDICAID, OTHER ==
[2021-05-05] MEDS ORDERED: LORazepam 2 MG/ML VIAL ONE (11:22)
[2021-05-05] MEDS ORDERED: levETIRAcetam 1000 MG/NS 0.75% 1,000 MG/100 ML BAG IV ONE (11:34)
[2021-05-05] MEDS ORDERED: SODIUM CHLORIDE 0.9% 1000 ML 1,000 ML IV ONE ×3 (11:34→19:25)
--- NOTE | 2021-05-05 11:46 | Emergency Department Report ---
HPI - General Chief Complaint: Seizure Time Seen by Provider: 05/05/21 11:32 - HPI HPI: 45-year-old female with history of SLE, asthma, syncope, and seizure disorder brought in by EMS after having multiple seizures. The initial call was made for the patient who was found down. According to the EMS report, when they got to the house, the patient was sitting up and seemed very confused. She complained of right-sided headache. Fingerstick blood glucose was normal. She had apparently been found down on her bedroom floor. She began to have a right gaze deviation and then had a tonic-clonic seizure. She was given 2 mg of Versed intranasally. In the ambulance she had another convulsive seizure and was given 2.5 mg of intranasal Versed with subsequent resolution. Then again, after arriving in our emergency department, the patient had another tonic-clonic seizure and was given 2.5 mg of Versed IV with subsequent resolution of her seizure. At this point, I examined the patient and she appeared to be postictal. She fully open her eyes and was able to speak and tell me her name. After couple minutes she was able to speak in full sentences. She provides further history saying that her last seizure was over 1 year ago. She used to take Keppra but no longer does. She says she has a right-sided headache which is typical of her seizures when she had them. When questioned further during the exam she indicates that she has pain in her neck and particularly the right hip. She is unsure whether she fell and says the last thing she remembers was getting ready for gnosticism. Before the incident today, the patient states she was in her normal state of health and had no symptoms other than feeling slightly tired. She denies experiencing any vision change, fevers, cough, shortness of breath, chest pain, abdominal pain, nausea/vomiting, focal weakness, sensory changes, dysuria, or any other notable complaints. She is fully vaccinated against COVID-19. ED Past Medical Hx - Past Medical History Hx Congestive Heart Failure: No Hx Diabetes: No Hx Renal Disease: Yes Hx Seizures: Yes Hx Asthma: Yes Hx COPD: No Additional medical history: Hypokalemia, hypercholesterolemia, hypothyroidism, interstitial cystitis - Surgical History Additional Surgical History: Hysterectomy 1993, kidney stone, thyroidectomy. Pulmonary embolism 2014 - Social History Smoking Status: Current Every Day Smoker Substance Use Type: None - Medications Home Medications: Home Medications Medication Instructions Recorded Confirmed Last Taken Type Elmiron 100 mg PO TID 12/05/17 09/12/18 09/10/18 History Advair 500-50 Diskus 1 dose INHALATION BID 30 Days 09/13/18 Unknown Rx Desmopressin 0.2 mg PO HS 30 Days 09/13/18 Unknown Rx Desmopressin [Ddavp] 0.2 mg PO QHS tablet 09/13/18 Unknown Rx Elmiron 100 mg PO TID 09/13/18 Unknown Rx Ibuprofen [Motrin] 800 mg PO Q12HR 14 Days #28 tablet 09/13/18 Unknown Rx Levothyroxine 88 mcg PO DAILY #30 09/13/18 Unknown Rx Levothyroxine [Synthroid] 88 mcg PO DAILY@0600 tablet 09/13/18 Unknown Rx Loratadine 10 mg PO DAILY #30 09/13/18 Unknown Rx Loratadine (Nf) [Claritin (Nf)] 10 mg PO DAILY tablet 09/13/18 Unknown Rx Montelukast 10 mg PO HS #30 09/13/18 Unknown Rx Montelukast [Singulair] 10 mg PO QHS tablet 09/13/18 Unknown Rx Pantoprazole [Protonix] 40 mg PO QDAY #30 tablet 09/13/18 Unknown Rx Pravastatin 40 mg PO HS #30 09/13/18 Unknown Rx Pravastatin [Pravachol] 40 mg PO QHS tablet 09/13/18 Unknown Rx Spiriva 18 mcg IH DAILY #30 09/13/18 Unknown Rx Ibuprofen [Motrin 800 MG tab] 800 mg PO Q8HR PRN #20 tablet 01/21/19 Unknown Rx traMADoL [Ultram] 50 mg PO Q6HR PRN #14 tablet 01/21/19 Unknown Rx Ketorolac [Toradol] 10 mg PO Q6H PRN #14 tablet 03/18/20 Unknown Rx ED Review of Systems ROS: Stated complaint: SEIZURES/SYNCOPE Other details as noted in HPI Constitutional: denies: chills, fever Eyes: denies: eye pain, vision change ENT: denies: throat pain, congestion Respiratory: denies: cough, shortness of breath Cardiovascular: denies: chest pain, palpitations Gastrointestinal: denies: abdominal pain, nausea, vomiting Genitourinary: denies: dysuria, frequency Musculoskeletal: denies: back pain Skin: denies: rash, lesions Neurological: headache. denies: weakness, numbness, paresthesias Psychiatric: denies: anxiety, depression Physical Exam - Physical Exam Physical Exam: GENERAL: Well developed and well nourished. No acute distress. Somnolent but easily arousable. HEAD: Normocephalic. Possible contusion noted to the right occiput without lacerations or abrasions noted. ENT: Dry mucous membranes. No lacerations or punctures appreciated. EYES: Extraocular movements are intact. Pupils are equal round and reactive to light bilaterally NECK: Supple. Full ROM is intact. Trachea is midline. Patient reports midline tenderness in the cervical spine region. C-collar has been ordered. LUNGS: Nonlabored breathing. Equal chest rise bilaterally. Clear to auscultation bilaterally. CARDIOVASCULAR: Regular rate and rhythm. No murmurs or rubs. VASCULAR: Cap refill < 2 seconds. Trace edema bilaterally. ABDOMEN: Abdomen is soft and nondistended. There is no significant tenderness, guarding or rebound. SKIN: Skin is warm and dry NEURO: Patient is somnolent but arousable. She is oriented x4.. coating mixer II-XII grossly intact. No focal deficits. Normal motor and sensory exam throughout. Normal speech. MUSCULOSKELETAL: No obvious deformities. She has tenderness of her bilateral h ips. No other notable areas of tenderness. Normal ROM throughout. BACK/SPINE: There are no palpable step-offs of the C/T/L-spine. There is midline tenderness noted in the cervical region. No costovertebral angle tenderness. ED Medical Decision Making - Lab Data Result diagrams: 05/05/21 12:16 05/05/21 12:16 Lab Results 05/05/21 05/05/21 05/05/21 Range/Units 12:13 12:13 12:16 WBC 4.8 (4.5-11.0) K/mm3 RBC 4.25 (3.65-5.03) M/mm3 Hgb 11.9 (10.1-14.3) gm/dl Hct 36.6 (30.3-42.9) % MCV 86 (79-97) fl MCH 28 (28-32) pg MCHC 33 (30-34) % RDW 13.3 (13.2-15.2) % Plt Count 312 (140-440) K/mm3 Lymph % (Auto) 38.4 H (13.4-35.0) % [place] % (Auto) 6.8 (0.0-7.3) % Eos % (Auto) 13.8 H (0.0-4.3) % Baso % (Auto) 1.3 (0.0-1.8) % Lymph # (Auto) 1.8 (1.2-5.4) K/mm3 [place] # (Auto) 0.3 (0.0-0.8) K/mm3 Eos # (Auto) 0.7 H (0.0-0.4) K/mm3 Baso # (Auto) 0.1 (0.0-0.1) K/mm3 Seg Neutrophils % 39.7 L (40.0-70.0) % Seg Neutrophils # 1.9 (1.8-7.7) K/mm3 Sodium (137-145) mmol/L Potassium (3.6-5.0) mmol/L Chloride (98-107) mmol/L Carbon Dioxide (22-30) mmol/L Anion Gap mmol/L BUN (7-17) mg/dL Creatinine (0.6-1.2) mg/dL Estimated GFR ml/min BUN/Creatinine Ratio % Glucose (65-100) mg/dL Calcium (8.4-10.2) mg/dL Magnesium (1.7-2.3) mg/dL Total Bilirubin (0.1-1.2) mg/dL Direct Bilirubin (0-0.2) mg/dL Indirect Bilirubin mg/dL AST (5-40) units/L ALT (7-56) units/L Alkaline Phosphatase (35-129) units/L Ammonia (25-60) umol/L Troponin T (0.00-0.029) ng/mL Total Protein (6.3-8.2) g/dL Albumin (3.9-5) g/dL Albumin/Globulin Ratio % TSH (0.270-4.200) mlU/mL HCG, Qual (Negative) Urine Color Yellow (Yellow) Urine Turbidity Clear (Clear) Urine pH 5.0 (5.0-7.0) Ur Specific [place] 1.017 (1.003-1.030) Urine Protein <15 mg/dl (Negative) mg/dL Urine Glucose (UA) Neg (Negative) mg/dL Urine Ketones Neg (Negative) mg/dL Urine Blood Mod (Negative) Urine Nitrite Neg (Negative) Urine Bilirubin Neg (Negative) Urine Urobilinogen < 2.0 (<2.0) mg/dL Ur Leukocyte Esterase Neg (Negative) Urine WBC (Auto) < 1.0 (0.0-6.0) /HPF Urine RBC (Auto) 6.0 (0.0-6.0) /HPF Salicylates (2.8-20.0) mg/dL Urine Opiates Screen Negative Urine Methadone Screen Negative Acetaminophen (10.0-30.0) ug/mL Ur Barbiturates Screen Negative Ur Phencyclidine Scrn Negative Ur Amphetamines Screen Negative U Benzodiazepines Scrn Negative Urine Cocaine Screen Negative U Marijuana (THC) Screen Negative Drugs of Abuse Note Disclamer Plasma/Serum Alcohol (0-0.07) % 05/05/21 05/05/21 05/05/21 Range/Units 12:16 12:16 12:16 WBC (4.5-11.0) K/mm3 RBC (3.65-5.03) M/mm3 Hgb (10.1-14.3) gm/dl Hct (30.3-42.9) % MCV (79-97) fl MCH (28-32) pg MCHC (30-34) % RDW (13.2-15.2) % Plt Count (140-440) K/mm3 Lymph % (Auto) (13.4-35.0) % [place] % (Auto) (0.0-7.3) % Eos % (Auto) (0.0-4.3) % Baso % (Auto) (0.0-1.8) % Lymph # (Auto) (1.2-5.4) K/mm3 [place] # (Auto) (0.0-0.8) K/mm3 Eos # (Auto) (0.0-0.4) K/mm3 Baso # (Auto) (0.0-0.1) K/mm3 Seg Neutrophils % (40.0-70.0) % Seg Neutrophils # (1.8-7.7) K/mm3 Sodium 143 (137-145) mmol/L Potassium 3.8 (3.6-5.0) mmol/L Chloride 109.0 H (98-107) mmol/L Carbon Dioxide 24 (22-30) mmol/L Anion Gap 14 mmol/L BUN 12 (7-17) mg/dL Creatinine 0.8 (0.6-1.2) mg/dL Estimated GFR > 60 ml/min BUN/Creatinine Ratio 15 % Glucose 88 (65-100) mg/dL Calcium 8.6 (8.4-10.2) mg/dL Magnesium 1.80 (1.7-2.3) mg/dL Total Bilirubin 0.20 (0.1-1.2) mg/dL Direct Bilirubin < 0.2 (0-0.2) mg/dL Indirect Bilirubin 0.0 mg/dL AST 10 (5-40) units/L ALT 10 (7-56) units/L Alkaline Phosphatase 59 (35-129) units/L Ammonia 15.0 L (25-60) umol/L Troponin T < 0.010 (0.00-0.029) ng/mL Total Protein 6.1 L (6.3-8.2) g/dL Albumin 4.0 (3.9-5) g/dL Albumin/Globulin Ratio 1.9 % TSH (0.270-4.200) mlU/mL HCG, Qual (Negative) Urine Color (Yellow) Urine Turbidity (Clear) Urine pH (5.0-7.0) Ur Specific [place] (1.003-1.030) Urine Protein (Negative) mg/dL Urine Glucose (UA) (Negative) mg/dL Urine Ketones (Negative) mg/dL Urine Blood (Negative) Urine Nitrite (Negative) Urine Bilirubin (Negative) Urine Urobilinogen (<2.0) mg/dL Ur Leukocyte Esterase (Negative) Urine WBC (Auto) (0.0-6.0) /HPF Urine RBC (Auto) (0.0-6.0) /HPF Salicylates < 0.3 L (2.8-20.0) mg/dL Urine Opiates Screen Urine Methadone Screen Acetaminophen (10.0-30.0) ug/mL Ur Barbiturates Screen Ur Phencyclidine Scrn Ur Amphetamines Screen U Benzodiazepines Scrn Urine Cocaine Screen U Marijuana (THC) Screen Drugs of Abuse Note Plasma/Serum Alcohol (0-0.07) % 05/05/21 05/05/21 05/05/21 Range/Units 12:16 12:16 12:16 WBC (4.5-11.0) K/mm3 RBC (3.65-5.03) M/mm3 Hgb (10.1-14.3) gm/dl Hct (30.3-42.9) % MCV (79-97) fl MCH (28-32) pg MCHC (30-34) % RDW (13.2-15.2) % Plt Count (140-440) K/mm3 Lymph % (Auto) (13.4-35.0) % [place] % (Auto) (0.0-7.3) % Eos % (Auto) (0.0-4.3) % Baso % (Auto) (0.0-1.8) % Lymph # (Auto) (1.2-5.4) K/mm3 [place] # (Auto) (0.0-0.8) K/mm3 Eos # (Auto) (0.0-0.4) K/mm3 Baso # (Auto) (0.0-0.1) K/mm3 Seg Neutrophils % (40.0-70.0) % Seg Neutrophils # (1.8-7.7) K/mm3 Sodium (137-145) mmol/L Potassium (3.6-5.0) mmol/L Chloride (98-107) mmol/L Carbon Dioxide (22-30) mmol/L Anion Gap mmol/L BUN (7-17) mg/dL Creatinine (0.6-1.2) mg/dL Estimated GFR ml/min BUN/Creatinine Ratio % Glucose (65-100) mg/dL Calcium (8.4-10.2) mg/dL Magnesium (1.7-2.3) mg/dL Total Bilirubin (0.1-1.2) mg/dL Direct Bilirubin (0-0.2) mg/dL Indirect Bilirubin mg/dL AST (5-40) units/L ALT (7-56) units/L Alkaline Phosphatase (35-129) units/L Ammonia (25-60) umol/L Troponin T (0.00-0.029) ng/mL Total Protein (6.3-8.2) g/dL Albumin (3.9-5) g/dL Albumin/Globulin Ratio % TSH 0.726 (0.270-4.200) mlU/mL HCG, Qual (Negative) Urine Color (Yellow) Urine Turbidity (Clear) Urine pH (5.0-7.0) Ur Specific [place] (1.003-1.030) Urine Protein (Negative) mg/dL Urine Glucose (UA) (Negative) mg/dL Urine Ketones (Negative) mg/dL Urine Blood (Negative) Urine Nitrite (Negative) Urine Bilirubin (Negative) Urine Urobilinogen (<2.0) mg/dL Ur Leukocyte Esterase (Negative) Urine WBC (Auto) (0.0-6.0) /HPF Urine RBC (Auto) (0.0-6.0) /HPF Salicylates (2.8-20.0) mg/dL Urine Opiates Screen Urine Methadone Screen Acetaminophen 5.0 L (10.0-30.0) ug/mL Ur Barbiturates Screen Ur Phencyclidine Scrn Ur Amphetamines Screen U Benzodiazepines Scrn Urine Cocaine Screen U Marijuana (THC) Screen Drugs of Abuse Note Plasma/Serum Alcohol < 0.01 (0-0.07) % 05/05/21 Range/Units 12:17 WBC (4.5-11.0) K/mm3 RBC (3.65-5.03) M/mm3 Hgb (10.1-14.3) gm/dl Hct (30.3-42.9) % MCV (79-97) fl MCH (28-32) pg MCHC (30-34) % RDW (13.2-15.2) % Plt Count (140-440) K/mm3 Lymph % (Auto) (13.4-35.0) % [place] % (Auto) (0.0-7.3) % Eos % (Auto) (0.0-4.3) % Baso % (Auto) (0.0-1.8) % Lymph # (Auto) (1.2-5.4) K/mm3 [place] # (Auto) (0.0-0.8) K/mm3 Eos # (Auto) (0.0-0.4) K/mm3 Baso # (Auto) (0.0-0.1) K/mm3 Seg Neutrophils % (40.0-70.0) % Seg Neutrophils # (1.8-7.7) K/mm3 Sodium (137-145) mmol/L Potassium (3.6-5.0) mmol/L Chloride (98-107) mmol/L Carbon Dioxide (22-30) mmol/L Anion Gap mmol/L BUN (7-17) mg/dL Creatinine (0.6-1.2) mg/dL Estimated GFR ml/min BUN/Creatinine Ratio % Glucose (65-100) mg/dL Calcium (8.4-10.2) mg/dL Magnesium (1.7-2.3) mg/dL Total Bilirubin (0.1-1.2) mg/dL Direct Bilirubin (0-0.2) mg/dL Indirect Bilirubin mg/dL AST (5-40) units/L ALT (7-56) units/L Alkaline Phosphatase (35-129) units/L Ammonia (25-60) umol/L Troponin T (0.00-0.029) ng/mL Total Protein (6.3-8.2) g/dL Albumin (3.9-5) g/dL Albumin/Globulin Ratio % TSH (0.270-4.200) mlU/mL HCG, Qual Negative (Negative) Urine Color (Yellow) Urine Turbidity (Clear) Urine pH (5.0-7.0) Ur Specific [place] (1.003-1.030) Urine Protein (Negative) mg/dL Urine Glucose (UA) (Negative) mg/dL Urine Ketones (Negative) mg/dL Urine Blood (Negative) Urine Nitrite (Negative) Urine Bilirubin (Negative) Urine Urobilinogen (<2.0) mg/dL Ur Leukocyte Esterase (Negative) Urine WBC (Auto) (0.0-6.0) /HPF Urine RBC (Auto) (0.0-6.0) /HPF Salicylates (2.8-20.0) mg/dL Urine Opiates Screen Urine Methadone Screen Acetaminophen (10.0-30.0) ug/mL Ur Barbiturates Screen Ur Phencyclidine Scrn Ur Amphetamines Screen U Benzodiazepines Scrn Urine Cocaine Screen U Marijuana (THC) Screen Drugs of Abuse Note Plasma/Serum Alcohol (0-0.07) % - EKG Data -: EKG Interpreted by Me - EKG Data 05/05/21 14:23 Normal sinus rhythm. Normal axis. Normal intervals. No ectopy. Nonspecific T wave inversions. No significant ST segment abnormalities. - Radiology Data Radiology results: report reviewed - Medical Decision Making 45-year-old female with complex medical history including prior seizures not currently on seizure medication brought in by EMS after multiple seizures. The patient was found down in her bedroom. She is amnesic to the event. She complains of right-sided headache which she says is typical of her seizures when she had them over 1 year ago. Patient has received a total of 7 mg of Versed. She is afebrile and with normal vital signs. Physical examination reveals no focal neurologic deficits. She has a possible contusion noted to the right occiput as well as midline tenderness of the cervical spine. Cervical collar has been ordered. She complains of tenderness of the bilateral hips although says it is worse on the right. We will perform broad work-up including a full set of labs, EKG, chest x-ray. We will also obtain CT of the head to assess for evidence of mass, intra cranial bleeding, or other intracranial ab normality to explain the patient's presentation. We also obtain CT of the cervical spine given that she has midline tenderness and likely fell. We will also obtain x- rays of the bilateral hips. We will give 1 L of IV fluids and loaded with 1500 mg of Keppra and continue to observe closely. On repeat assessment at 1:15 PM, the patient remains alert and oriented and with nonfocal neurologic exam with c-collar in place. She provides further history saying that actually her seizure medication when it was prescribed was Dilantin, not Keppra. She however does not remember the dose. She does not remember the name of her neurologist. Labs have resulted and reveal no significant leukocytosis or anemia. Creatinine is within normal range and there are no significant electrolyte abnormalities. CT and plain film imaging are pending. CT of the head reveals no acute abnormalities. CT of the cervical spine reveals no acute abnormalities. C-collar was cleared by myself. The patient demonstrates full painless range of motion of the neck. Continues to report headache. Will order Toradol in addition to Tylenol. Plain film x-ray of the bilateral hips reveals no acute abnormalities. Chest x-ray reveals no acute abnormalities Repeat assessment at 2:30 PM, the patient remains with extreme somnolence On repeat assessment at 4:45 PM, the patient remains with extreme somnolence. I asked if she feels she is able to walk and she says no On repeat assessment again at 6:30 PM, the patient remains with extreme somnolence. She says she feels as if she is having a lupus flare. Given the prolonged period of somnolence the fact that she has not returned fully to baseline she will be admitted to medicine for further management. Spoke with Dr. Garcia, the on-call hospitalist regarding the case who accepts the patient for admission and will assume care. Critical care attestation.: If time is entered above; I have spent that time in minutes in the direct care of this critically ill patient, excluding procedure time. ED Disposition Clinical Impression: Status epilepticus, Acute encephalopathy Disposition: ADMITTED INPATIENT Is pt being admited?: Yes Condition: Stable
[2021-05-05] MEDS ORDERED: levETIRAcetam 500 MG in DEXTROSE 5% IN WATER 100 ML IV ONE (12:34)
[2021-05-05 12:46] LABS: Basophils # (Auto) 0.1 K/mm3 (0.0-0.1); Basophils % (Auto) 1.3 % (0.0-1.8); Eosinophils # (Auto) 0.7 K/mm3 (0.0-0.4); Eosinophils % (Auto) 13.8 % (0.0-4.3); Hematocrit 36.6 % (30.3-42.9); Hemoglobin 11.9 gm/dl (10.1-14.3); Lymphocytes # (Auto) 1.8 K/mm3 (1.2-5.4); Lymphocytes % (Auto) 38.4 % (13.4-35.0); Mean Corpuscular HGB Conc 33 % (30-34); Mean Corpuscular Volume 86 fl (79-97); Monocytes # (Auto) 0.3 K/mm3 (0.0-0.8); Monocytes % (Auto) 6.8 % (0.0-7.3); Platelet Count 312 K/mm3 (140-440); Red Blood Count 4.25 M/mm3 (3.65-5.03); Red Cell Distribution Width 13.3 % (13.2-15.2)
[2021-05-05 12:50] LABS: Bilirubin,Urine NEG (Negative); Blood,Urine MOD (Negative); Color,Urine Yellow (Yellow); Protein,Urine <15 mg/dL mg/dL (Negative); Urobilinogen,Urine < 2.0 mg/dL (<2.0); WBC,Urine < 1.0 /HPF (0.0-6.0)
[2021-05-05 12:58] LABS: Amphetamine Screen,Urine Negative; Benzodiazepines Screen,Urine Negative; Cannabinoid Screen,Urine Negative; Cocaine Screen,Urine Negative; Methadone Screen,Urine Negative; Opiate Screen,Urine Negative
[2021-05-05] MEDS ORDERED: ACETAMINOPHEN 500 MG TAB PO ONE (13:11)
[2021-05-05 13:12] LABS: Alanine Aminotransferase 10 units/L (7-56); BUN/Creatinine Ratio 15; Blood Urea Nitrogen 12 mg/dL (7-17); Calcium 8.6 mg/dL (8.4-10.2); Hemolysis Index 1
--- NOTE | 2021-05-05 13:14 | Cat Scan Report ---
CT CERVICAL SPINE WITHOUT CONTRAST INDICATION: trauma, midline neck tend. TECHNIQUE: Axial CT images of the spine were obtained. Sagittal and coronal reformatted images were produced. Al l CT scans at this location are performed using CT dose reduction for ALARA by means of automated exp osure control. COMPARISON: None available. FINDINGS: ACUTE FRACTURE(S) OR SUBLUXATION: None. SPINAL DEGENERATIVE CHANGES: No significant degenerative changes. PARASPINAL SOFT TISSUES: No soft tissue swelling or other acute abnormalities. ADDITIONAL FINDINGS: No significant additional findings. IMPRESSION: 1. No acute fracture or subluxation in the spine in neutral position. Signer Name: Yanick Hadley MD Signed: 05/05/2021 1:10 PM Workstation Name: [id number]
--- NOTE | 2021-05-05 13:17 | Cat Scan Report ---
CT HEAD WITHOUT CONTRAST INDICATION: multiple seizures. TECHNIQUE: All CT scans at this location are performed using CT dose reduction for ALARA by means of automated e xposure control. COMPARISON: CT 01/21/2019. FINDINGS: HEMORRHAGE: None. EXTRA-AXIAL SPACES: Normal in size and morphology for the patient's age. VENTRICULAR SYSTEM: Normal in size and morphology for the patient's age. BRAIN PARENCHYMA: No acute findings. MIDLINE SHIFT OR HERNIATION: None. ORBITS: Normal as visualized. SOFT TISSUES OF HEAD: Normal. CALVARIUM: Normal. VISUALIZED PARANASAL SINUSES AND MASTOID AIR CELLS: Clear. ADDITIONAL FINDINGS: None. IMPRESSION: 1. No acute intracranial abnormality. Signer Name: Yanick Hadley MD Signed: 05/05/2021 1:12 PM Workstation Name: [id number]
[2021-05-05 13:22] LABS: Bilirubin,Direct < 0.2 mg/dL (0-0.2)
[2021-05-05] MEDS ORDERED: KETOROLAC 30 MG/1 ML INJ IV ONE (13:25)
--- NOTE | 2021-05-05 13:45 | XRay Report ---
BILATERAL HIPS AND PELVIS 3 VIEWS INDICATION: Pelvic pain after fall. COMPARISON: CT pelvis 03/18/2020 FINDINGS: No acute fracture or dislocation is seen. No significant degenerative changes. Pelvic calcifications are again noted. IMPRESSION: 1. No acute findings. CHEST 1 VIEW INDICATION: seizure, fall. COMPARISON: 12/05/2017 FINDINGS: Support devices: None. Heart: Normal. Lungs/Pleura: No acute pulmonary or pleural findings. IMPRESSION: 1. No acute findings. Signer Name: Yanick Hadley MD Signed: 05/05/2021 1:41 PM Workstation Name: [id number]
[2021-05-05] MEDS ORDERED: ALBUTEROL 2.5 MG/3 ML NEBU IH PRN (18:25)
[2021-05-05] MEDS ORDERED: ONDANSETRON 4 MG/2 ML INJ IV PRN (18:25)
[2021-05-05] MEDS ORDERED: HYDROmorphone 1 MG/1 ML INJ IV PRN (18:25)
[2021-05-05] MEDS ORDERED: ACETAMINOPHEN 325 MG TAB PO PRN (18:25)
[2021-05-05] MEDS ORDERED: oxyCODONE /ACETAMINOPHEN 5-325MG TAB PO PRN (18:25)
[2021-05-05] MEDS ORDERED: traMADol 50 MG TAB PO PRN (18:28)
--- NOTE | 2021-05-05 18:32 | History and Physical Report ---
History of Present Illness Chief complaint: She had a seizure History of present illness: 45 YO Female with Obesity Hypoventilation Syndrome, SLE, Mild Intermittent Asthma, Seizure Disorder not currently taking AED, HLD, Hypothyroidism Nicotine Dependence presents to ED for evaluation. Patient has diminished cognition at the time my evaluation is unable to provide history. Patient history provided by EMS staff, ED staff, as well as the patient's daughter who was made available by telephone for interview. As per family the patient was preparing herself for adventism when she experienced a seizure. EMS was notified and upon arrival the patient was found to be in distress and subsequently transported to [facility] for further care and evaluation. Patient experienced a total of 3 recurrent seizures during transport. Patient treated with benzodiazepine therapy. Patient seen and evaluated upon arrival. Patient found to have clinical symptoms consistent with status epilepticus, acute encephalopathy. Patient elizabeth david with Keppra loading in the emergency department. Patient placed in observation status and admitted to medical floor due to increased risk of worsening symptoms. No reports of fever, chills, chest pain, palpitation, productive cough, skin rash, recent ill contacts, or known exposure to COVID-19. Patient is fully vaccinated against COVID-19. Prior admission on 09/11/2018 reviewed. All medication listed at time of admission has been reconciled. Advanced care planning conducted in ED. Medications and Allergies Allergies Allergy/AdvReac Type Severity Reaction Status Date / Time granisetron [From Kytril] Allergy Angioedema Verified 12/05/17 11:32 topiramate [From Topamax] Allergy Angioedema Verified 01/21/19 10:55 Home Medications Medication Instructions Recorded Confirmed Last Taken Type Elmiron 100 mg PO TID 12/05/17 09/12/18 09/10/18 History Advair 500-50 Diskus 1 dose INHALATION BID 30 Days 09/13/18 Unknown Rx Desmopressin 0.2 mg PO HS 30 Days 09/13/18 Unknown Rx Desmopressin [Ddavp] 0.2 mg PO QHS tablet 09/13/18 Unknown Rx Elmiron 100 mg PO TID 09/13/18 Unknown Rx Ibuprofen [Motrin] 800 mg PO Q12HR 14 Days #28 tablet 09/13/18 Unknown Rx Levothyroxine 88 mcg PO DAILY #30 09/13/18 Unknown Rx Levothyroxine [Synthroid] 88 mcg PO DAILY@0600 tablet 09/13/18 Unknown Rx Loratadine 10 mg PO DAILY #30 09/13/18 Unknown Rx Loratadine (Nf) [Claritin (Nf)] 10 mg PO DAILY tablet 09/13/18 Unknown Rx Montelukast 10 mg PO HS #30 09/13/18 Unknown Rx Montelukast [Singulair] 10 mg PO QHS tablet 09/13/18 Unknown Rx Pantoprazole [Protonix] 40 mg PO QDAY #30 tablet 09/13/18 Unknown Rx Pravastatin 40 mg PO HS #30 09/13/18 Unknown Rx Pravastatin [Pravachol] 40 mg PO QHS tablet 09/13/18 Unknown Rx Spiriva 18 mcg IH DAILY #30 09/13/18 Unknown Rx Ibuprofen [Motrin 800 MG tab] 800 mg PO Q8HR PRN #20 tablet 01/21/19 Unknown Rx traMADoL [Ultram] 50 mg PO Q6HR PRN #14 tablet 01/21/19 Unknown Rx Ketorolac [Toradol] 10 mg PO Q6H PRN #14 tablet 03/18/20 Unknown Rx Active Meds: Active Medications Acetaminophen (Acetaminophen 325 Mg Tab) 650 mg PO Q4H PRN PRN Reason: Pain MILD(1-3)/Fever >100.5/GONZALEZ Albuterol (Albuterol 2.5 Mg/3 Ml Nebu) 2.5 mg IH Q4HRT PRN PRN Reason: Shortness Of Breath Hydromorphone HCl (Hydromorphone 1 Mg/1 Ml Inj) 0.5 mg IV Q23H PRN PRN Reason: Pain , Severe (7-10) Sodium Chloride (Nacl 0.9% 1000 Ml) 1,000 mls @ 125 mls/hr IV ONCE ONE Stop: 05/06/21 03:24 Miscellaneous Medication (Elmiron) 100 mg PO TID ROSA Miscellaneous Medication (Levothyroxine) 88 mcg PO DAILY ROSA Miscellaneous Medication (Montelukast) 10 mg PO HS ROSA Miscellaneous Medication (Pravastatin) 40 mg PO HS RSOA Miscellaneous Medication (Spiriva) 18 mcg IH DAILY ROSA Ondansetron HCl (Ondansetron 4 Mg/2 Ml Inj) 4 mg IV Q8H PRN PRN Reason: Nausea And Vomiting Oxycodone/Acetaminophen (Oxycodone /Acetaminophen 5-325mg Tab) 1 tab PO Q16H PRN PRN Reason: Pain, Moderate (4-6) Pantoprazole Sodium (Pantoprazole 40 Mg Tab) 40 mg PO QDAY ROSA Sodium Chloride (Sodium Chloride 0.9% 10 Ml Flush Syringe) 10 ml IV BID ROSA Sodium Chloride (Sodium Chloride 0.9% 10 Ml Flush Syringe) 10 ml IV PRN PRN PRN Reason: LINE FLUSH Tramadol HCl (Tramadol 50 Mg Tab) 50 mg PO Q6HR PRN PRN Reason: PAIN Exam - Constitutional Vitals: Temp Pulse Resp BP Pulse Ox 98.4 F 72 19 104/61 100 05/05/21 12:14 05/05/21 15:31 05/05/21 15:31 05/05/21 15:31 05/05/21 15:31 General appearance: Present: mild distress - EENT Eyes: Present: PERRL, miosis ENT: clear oral mucosa, hearing decreased - Neck Neck: Present: supple, normal ROM - Respiratory Respiratory effort: normal Respiratory: bilateral: CTA - Cardiovascular Heart Sounds: Present: S1 & S2. Absent: rub, click - Extremities Extremities: pulses symmetrical, No edema Peripheral Pulses: within normal limits - Abdominal General gastrointestinal: Present: soft, non-tender, non-distended, normal bowel sounds Female genitourinary: Present: normal - Integumentary Integumentary: Present: clear, warm, dry - Musculoskeletal Musculoskeletal: generalized weakness - Psychiatric Psychiatric: no appropriate mood/affect, no intact judgment & insight, no memory intact - Neurologic Neurologic: CNII-XII intact, no focal deficits, moves all extremities, no gait normal HEART Score - HEART Score Troponin: Troponin T < 0.010 ng/mL (0.00-0.029) 05/05/21 12:16 Results - Labs CBC & Chem 7: 05/05/21 12:16 05/05/21 12:16 Labs: Abnormal lab results 05/05/21 05/05/21 05/05/21 Range/Units 12:16 12:16 12:16 Lymph % (Auto) 38.4 H (13.4-35.0) % Eos % (Auto) 13.8 H (0.0-4.3) % Eos # (Auto) 0.7 H (0.0-0.4) K/mm3 Seg Neutrophils % 39.7 L (40.0-70.0) % Chloride 109.0 H (98-107) mmol/L Ammonia 15.0 L (25-60) umol/L Total Protein 6.1 L (6.3-8.2) g/dL Salicylates (2.8-20.0) mg/dL Acetaminophen (10.0-30.0) ug/mL 05/05/21 05/05/21 Range/Units 12:16 12:16 Lymph % (Auto) (13.4-35.0) % Eos % (Auto) (0.0-4.3) % Eos # (Auto) (0.0-0.4) K/mm3 Seg Neutrophils % (40.0-70.0) % Chloride (98-107) mmol/L Ammonia (25-60) umol/L Total Protein (6.3-8.2) g/dL Salicylates < 0.3 L (2.8-20.0) mg/dL Acetaminophen 5.0 L (10.0-30.0) ug/mL Assessment and Plan - Patient Problems (1) Status epilepticus Current Visit: Yes Status: Acute Plan to address problem: Seizure precautions, aspiration precautions, fall precautions, Keppra therapy loading in the emergency department, continue Keppra twice daily, neuro check, (2) Acute encephalopathy Current Visit: Yes Status: Acute Plan to address problem: CT scan head, seizure precautions, neuro check, aspiration precautions, supportive care. (3) Asthma Current Visit: Yes Status: Acute Qualifiers: Asthma severity: mild Asthma persistence: intermittent Plan to address problem: No active exacerbation at this time, continue medical management. (4) Obesity hypoventilation syndrome Current Visit: Yes Status: Acute Plan to address problem: Balanced diet, increase physical activity at discharge, outpatient pulmonary follow-up for sleep study. (5) Hypothyroidism Current Visit: Yes Status: Acute Qualifiers: Hypothyroidism type: other Qualified Code(s): E03.8 - Other specified hypothyroidism Plan to address problem: Continue Synthroid therapy, continue medical management. (6) GERD (gastroesophageal reflux disease) Current Visit: Yes Status: Acute Qualifiers: Esophagitis presence: without esophagitis Qualified Code(s): K21.9 - Gastro-esophageal reflux disease without esophagitis Plan to address problem: PPI therapy, supportive care (7) DVT prophylaxis Current Visit: Yes Status: Acute Plan to address problem: SCD to bilateral lower extremities while in bed (8) Advance care planning Current Visit: Yes Status: Acute Plan to address problem: Disease education conducted, care plan discussed, diagnoses discussed, prognosis discussed, treatment plan discussed. Patient and family acknowledge understanding and agreement with care plan, +30 minutes.
[2021-05-05] MEDS ORDERED: cefTRIAXone/NS 2 GM/100 ML 2 GM/100 ML BAG IV ONE (18:42)
[2021-05-05] MEDS: levETIRAcetam 500 MG/5 ML ORAL LIQD PO SCH (22:00)
[2021-05-05] MEDS ORDERED: NON-FORMULARY EACH (Montelukast 10 MG) PO SCH (22:00)
[2021-05-05] MEDS ORDERED: PRAVASTATIN 40 MG TAB PO SCH (22:00)
[2021-05-05] MEDS ORDERED: NON-FORMULARY EACH (Pravastatin 40 MG) PO SCH (22:00)
[2021-05-05] MEDS ORDERED: MONTELUKAST 10 MG TAB PO SCH (22:00)
[2021-05-05] MEDS: ELMIRON 100 MG PO SCH (22:54)
[2021-05-06 04:59] LABS: BUN/Creatinine Ratio 15; Blood Urea Nitrogen 12 mg/dL (7-17); Calcium 7.6 mg/dL (8.4-10.2); Hemolysis Index 6
[2021-05-06] MEDS ORDERED: LEVOTHYROXINE 88 MCG TAB PO SCH (06:00)
--- NOTE | 2021-05-06 08:25 | Progress Note ---
Assessment and Plan Assessment and plan: --Hypokalemia Current Visit: Yes Status: Acute Replenished with 40 mEq of KCl -- status epilepticus Current Visit: Yes Status: Acute Seizure precautions, aspiration precautions, fall precautions, Keppra therapy loading in the emergency department, continue Keppra twice daily, neuro check, --Acute encephalopathy Current Visit: Yes Status: Acute CT scan head, seizure precautions, neuro check, aspiration precautions, supportive care. --Asthma Current Visit: Yes Status: Acute No active exacerbation at this time, continue medical management. -- Obesity hypoventilation syndrome Current Visit: Yes Status: Acute Balanced diet, increase physical activity at discharge, outpatient pulmonary follow-up for sleep study. -- Hypothyroidism Current Visit: Yes Status: Acute Continue Synthroid therapy, continue medical management. -- GERD (gastroesophageal reflux disease) Current Visit: Yes Status: Acute PPI therapy, supportive care -- DVT prophylaxis Current Visit: Yes Status: Acute SCD to bilateral lower extremities while in bed -- Advance care planning Current Visit: Yes Status: Acute Disease education conducted, care plan discussed, diagnoses discussed, prognosis discussed, treatment plan discussed. Patient and family acknowledge understanding and agreement with care plan, +30 minutes. Hospitalist Physical - Constitutional Vitals: Temp Pulse Resp BP Pulse Ox 97.6 F 76 18 119/76 100 05/05/21 19:11 05/05/21 22:58 05/05/21 22:58 05/05/21 22:58 05/05/21 22:58 General appearance: Present: mild distress HEART Score - HEART Score Troponin: Troponin T < 0.010 ng/mL (0.00-0.029) 05/05/21 12:16 Results - Labs CBC & Chem 7: 05/05/21 12:16 05/06/21 04:16 Labs: Laboratory Last Values WBC 4.8 K/mm3 (4.5-11.0) 05/05/21 12:16 RBC 4.25 M/mm3 (3.65-5.03) 05/05/21 12:16 Hgb 11.9 gm/dl (10.1-14.3) 05/05/21 12:16 Hct 36.6 % (30.3-42.9) 05/05/21 12:16 MCV 86 fl (79-97) 05/05/21 12:16 MCH 28 pg (28-32) 05/05/21 12:16 MCHC 33 % (30-34) 05/05/21 12:16 RDW 13.3 % (13.2-15.2) 05/05/21 12:16 Plt Count 312 K/mm3 (140-440) 05/05/21 12:16 Lymph % (Auto) 38.4 % (13.4-35.0) H 05/05/21 12:16 [place] % (Auto) 6.8 % (0.0-7.3) 05/05/21 12:16 Eos % (Auto) 13.8 % (0.0-4.3) H 05/05/21 12:16 Baso % (Auto) 1.3 % (0.0-1.8) 05/05/21 12:16 Lymph # (Auto) 1.8 K/mm3 (1.2-5.4) 05/05/21 12:16 [place] # (Auto) 0.3 K/mm3 (0.0-0.8) 05/05/21 12:16 Eos # (Auto) 0.7 K/mm3 (0.0-0.4) H 05/05/21 12:16 Baso # (Auto) 0.1 K/mm3 (0.0-0.1) 05/05/21 12:16 Seg Neutrophils % 39.7 % (40.0-70.0) L 05/05/21 12:16 Seg Neutrophils # 1.9 K/mm3 (1.8-7.7) 05/05/21 12:16 Sodium 144 mmol/L (137-145) 05/06/21 04:16 Potassium 3.4 mmol/L (3.6-5.0) L 05/06/21 04:16 Chloride 110.6 mmol/L (98-107) H 05/06/21 04:16 Carbon Dioxide 22 mmol/L (22-30) 05/06/21 04:16 Anion Gap 15 mmol/L 05/06/21 04:16 BUN 12 mg/dL (7-17) 05/06/21 04:16 Creatinine 0.8 mg/dL (0.6-1.2) 05/06/21 04:16 Estimated GFR > 60 ml/min 05/06/21 04:16 BUN/Creatinine Ratio 15 % 05/06/21 04:16 Glucose 83 mg/dL (65-100) 05/06/21 04:16 Calcium 7.6 mg/dL (8.4-10.2) L 05/06/21 04:16 Magnesium 1.80 mg/dL (1.7-2.3) 05/05/21 12:16 Total Bilirubin 0.20 mg/dL (0.1-1.2) 05/05/21 12:16 Direct Bilirubin < 0.2 mg/dL (0-0.2) 05/05/21 12:16 Indirect Bilirubin 0.0 mg/dL 05/05/21 12:16 AST 10 units/L (5-40) 05/05/21 12:16 ALT 10 units/L (7-56) 05/05/21 12:16 Alkaline Phosphatase 59 units/L (35-129) 05/05/21 12:16 Ammonia 15.0 umol/L (25-60) L 05/05/21 12:16 Troponin T < 0.010 ng/mL (0.00-0.029) 05/05/21 12:16 Total Protein 6.1 g/dL (6.3-8.2) L 05/05/21 12:16 Albumin 4.0 g/dL (3.9-5) 05/05/21 12:16 Albumin/Globulin Ratio 1.9 % 05/05/21 12:16 TSH 0.726 mlU/mL (0.270-4.200) 05/05/21 12:16 HCG, Qual Negative (Negative) 05/05/21 12:17 Urine Color Yellow (Yellow) 05/05/21 12:13 Urine Turbidity Clear (Clear) 05/05/21 12:13 Urine pH 5.0 (5.0-7.0) 05/05/21 12:13 Ur Specific [place] 1.017 (1.003-1.030) 05/05/21 12:13 Urine Protein <15 mg/dl mg/dL (Negative) 05/05/21 12:13 Urine Glucose (UA) Neg mg/dL (Negative) 05/05/21 12:13 Urine Ketones Neg mg/dL (Negative) 05/05/21 12:13 Urine Blood Mod (Negative) 05/05/21 12:13 Urine Nitrite Neg (Negative) 05/05/21 12:13 Urine Bilirubin Neg (Negative) 05/05/21 12:13 Urine Urobilinogen < 2.0 mg/dL (<2.0) 05/05/21 12:13 Ur Leukocyte Esterase Neg (Negative) 05/05/21 12:13 Urine WBC (Auto) < 1.0 /HPF (0.0-6.0) 05/05/21 12:13 Urine RBC (Auto) 6.0 /HPF (0.0-6.0) 05/05/21 12:13 Salicylates < 0.3 mg/dL (2.8-20.0) L 05/05/21 12:16 Urine Opiates Screen Negative 05/05/21 12:13 Urine Methadone Screen Negative 05/05/21 12:13 Acetaminophen 5.0 ug/mL (10.0-30.0) L 05/05/21 12:16 Ur Barbiturates Screen Negative 05/05/21 12:13 Ur Phencyclidine Scrn Negative 05/05/21 12:13 Ur Amphetamines Screen Negative 05/05/21 12:13 U Benzodiazepines Scrn Negative 05/05/21 12:13 Urine Cocaine Screen Negative 05/05/21 12:13 U Marijuana (THC) Screen Negative 05/05/21 12:13 Drugs of Abuse Note Disclamer 05/05/21 12:13 Plasma/Serum Alcohol < 0.01 % (0-0.07) 05/05/21 12:16 Active Medications - Current Medications Current Medications: Generic Name Dose Route Start Last Admin Trade Name Freq PRN Reason Stop Dose Admin Acetaminophen 650 mg 05/05/21 18:25 Acetaminophen 325 Mg Tab PO Q4H PRN Pain MILD(1-3)/Fever >100.5/GONZALEZ Albuterol 2.5 mg 05/05/21 18:25 Albuterol 2.5 Mg/3 Ml Nebu IH Q4HRT PRN Shortness Of Breath Hydromorphone HCl 0.5 mg 05/05/21 18:25 Hydromorphone 1 Mg/1 Ml Inj IV Q23H PRN Pain , Severe (7-10) Levetiracetam 500 mg 05/05/21 22:00 05/05/21 22:00 Levetiracetam 500 Mg/5 Ml Oral Liqd PO 500 mg BID ROSA Administration Levothyroxine Sodium 88 mcg 05/06/21 06:00 05/06/21 06:00 Levothyroxine 88 Mcg Tab PO 88 mcg DAILY@0600 [facility] Administration Miscellaneous Medication 100 mg 05/05/21 20:00 05/05/21 22:54 Elmiron PO Not Given TID [facility] Montelukast Sodium 10 mg 05/05/21 22:00 05/05/21 22:00 Montelukast 10 Mg Tab PO 10 mg QHS ROSA Administration Ondansetron HCl 4 mg 05/05/21 18:25 Ondansetron 4 Mg/2 Ml Inj IV Q8H PRN Nausea And Vomiting Oxycodone/Acetaminophen 1 tab 05/05/21 18:25 05/06/21 07:46 Oxycodone /Acetaminophen 5-325mg Tab PO 1 tab Q16H PRN Administration Pain, Moderate (4-6) Pantoprazole Sodium 40 mg 05/06/21 10:00 Pantoprazole 40 Mg Tab PO QDAY [facility] Pravastatin Sodium 40 mg 05/05/21 22:00 05/05/21 22:00 Pravastatin 40 Mg Tab PO 40 mg QHS [facility] Administration Sodium Chloride 10 ml 05/05/21 22:00 05/05/21 22:00 Sodium Chloride 0.9% 10 Ml Flush Syringe IV 10 ml BID ROSA Administration Sodium Chloride 10 ml 05/05/21 18:25 Sodium Chloride 0.9% 10 Ml Flush Syringe IV PRN PRN LINE FLUSH Tiotropium [place] 1 puff 05/06/21 09:00 Tiotropium 18 Mcg Cap Inhalation IH Q24HRT [facility] Tramadol HCl 50 mg 05/05/21 18:28 05/05/21 22:31 Tramadol 50 Mg Tab PO 50 mg Q6HR PRN Administration PAIN
[2021-05-06] MEDS: ELMIRON 100 MG PO SCH (08:32)
[2021-05-06] MEDS ORDERED: TIOTROPIUM 18 MCG CAP INHALATION IH SCH (09:00)
--- NOTE | 2021-05-06 09:12 | Consultation ---
History of Present Illness Consult date: 05/06/21 Reason for Consult: Break through seizure , poor compliance with medications History of present illness: History of Present Illness Chief complaint: She had a seizure History of present illness: 45 YO Female with Obesity Hypoventilation Syndrome, SLE, Mild Intermittent Asthma, Seizure Disorder not currently taking AED, HLD, Hypothyroidism Nicotine Dependence presents to ED for evaluation. Patient has diminished cognition at the time my evaluation is unable to provide history. Patient history provided by EMS staff, ED staff, as well as the patient's daughter who was made available by telephone for interview. As per family the patient was preparing herself for yarsani when she experienced a seizure. EMS was notified and upon arrival the patient was found to be in distress and subsequently transported to [facility] for further care and evaluation. Patient experienced a total of 3 recurrent seizures during transport. Patient treated with benzodiazepine therapy. Patient seen and evaluated upon arrival. Patient found to have clinical symptoms consistent with above and with acute encephalopathy. Patient treated with Keppra loading in the emergency department. Patient placed in observation status and admitted to medical floor due to increased risk of worsening symptoms. No reports of fever, chills, chest pain, palpitation, productive cough, skin rash, recent ill contacts, or known exposure to COVID-19. Patient is fully vaccinated against COVID-19. Prior ad mission on 09/11/2018 reviewed. All medication listed at time of admission has been reconciled. Advanced care planning conducted in ED. Today pt. is alert oriented complaining of headache , according to her she is with hx of seizure for over 15 years and is with family hx of seizure , her last seizure is 3 years back and she stopped medications , she drives , she denied drinking alcohol or smoking . she is followed by Rheumatology for her Lupus and is complying with medications In ER UDS is negative Ct brain is unremarkable ++ she is allergic to topamax taking Ultram prn for pain and tordol Medications and Allergies Allergies Allergy/AdvReac Type Severity Reaction Status Date / Time granisetron [From Kytril] Allergy Angioedema Verified 12/05/17 11:32 topiramate [From Topamax] Allergy Angioedema Verified 01/21/19 10:55 Home Medications Medication Instructions Recorded Confirmed Last Taken Type Elmiron 100 mg PO TID 12/05/17 09/12/18 09/10/18 History Advair 500-50 Diskus 1 dose INHALATION BID 30 Days 09/13/18 Unknown Rx Desmopressin 0.2 mg PO HS 30 Days 09/13/18 Unknown Rx Desmopressin [Ddavp] 0.2 mg PO QHS tablet 09/13/18 Unknown Rx Elmiron 100 mg PO TID 09/13/18 Unknown Rx Ibuprofen [Motrin] 800 mg PO Q12HR 14 Days #28 tablet 09/13/18 Unknown Rx Levothyroxine 88 mcg PO DAILY #30 09/13/18 Unknown Rx Levothyroxine [Synthroid] 88 mcg PO DAILY@0600 tablet 09/13/18 Unknown Rx Loratadine 10 mg PO DAILY #30 09/13/18 Unknown Rx Loratadine (Nf) [Claritin (Nf)] 10 mg PO DAILY tablet 09/13/18 Unknown Rx Montelukast 10 mg PO HS #30 09/13/18 Unknown Rx Montelukast [Singulair] 10 mg PO QHS tablet 09/13/18 Unknown Rx Pantoprazole [Protonix] 40 mg PO QDAY #30 tablet 09/13/18 Unknown Rx Pravastatin 40 mg PO HS #30 09/13/18 Unknown Rx Pravastatin [Pravachol] 40 mg PO QHS tablet 09/13/18 Unknown Rx Spiriva 18 mcg IH DAILY #30 09/13/18 Unknown Rx Ibuprofen [Motrin 800 MG tab] 800 mg PO Q8HR PRN #20 tablet 01/21/19 Unknown Rx traMADoL [Ultram] 50 mg PO Q6HR PRN #14 tablet 01/21/19 Unknown Rx Ketorolac [Toradol] 10 mg PO Q6H PRN #14 tablet 03/18/20 Unknown Rx Active Meds: Active Medications Acetaminophen (Acetaminophen 325 Mg Tab) 650 mg PO Q4H PRN PRN Reason: Pain MILD(1-3)/Fever >100.5/GONZALEZ Albuterol (Albuterol 2.5 Mg/3 Ml Nebu) 2.5 mg IH Q4HRT PRN PRN Reason: Shortness Of Breath Hydromorphone HCl (Hydromorphone 1 Mg/1 Ml Inj) 0.5 mg IV Q23H PRN PRN Reason: Pain , Severe (7-10) Sodium Chloride (Nacl 0.9% 1000 Ml) 1,000 mls @ 125 mls/hr IV ONCE ONE Stop: 05/06/21 03:24 Miscellaneous Medication (Elmiron) 100 mg PO TID [facility] Miscellaneous Medication (Levothyroxine) 88 mcg PO DAILY ROSA Miscellaneous Medication (Montelukast) 10 mg PO HS ROSA Miscellaneous Medication (Pravastatin) 40 mg PO HS ROSA Miscellaneous Medication (Spiriva) 18 mcg IH DAILY ROSA Ondansetron HCl (Ondansetron 4 Mg/2 Ml Inj) 4 mg IV Q8H PRN PRN Reason: Nausea And Vomiting Oxycodone/Acetaminophen (Oxycodone /Acetaminophen 5-325mg Tab) 1 tab PO Q16H PRN PRN Reason: Pain, Moderate (4-6) Pantoprazole Sodium (Pantoprazole 40 Mg Tab) 40 mg PO QDAY ROSA Sodium Chloride (Sodium Chloride 0.9% 10 Ml Flush Syringe) 10 ml IV BID ROSA Sodium Chloride (Sodium Chloride 0.9% 10 Ml Flush Syringe) 10 ml IV PRN PRN PRN Reason: LINE FLUSH Tramadol HCl (Tramadol 50 Mg Tab) 50 mg PO Q6HR PRN PRN Reason: PAIN Medications and Allergies Allergies Allergy/AdvReac Type Severity Reaction Status Date / Time granisetron [From Kytril] Allergy Angioedema Verified 05/06/21 10:39 topiramate [From Topamax] Allergy Angioedema Verified 05/06/21 10:39 Home Medications Medication Instructions Recorded Confirmed Last Taken Type Elmiron 100 mg PO TID 12/05/17 09/12/18 09/10/18 History Advair 500-50 Diskus 1 dose INHALATION BID 30 Days 09/13/18 Unknown Rx Desmopressin 0.2 mg PO HS 30 Days 09/13/18 Unknown Rx Desmopressin [Ddavp] 0.2 mg PO QHS tablet 09/13/18 Unknown Rx Elmiron 100 mg PO TID 09/13/18 Unknown Rx Ibuprofen [Motrin] 800 mg PO Q12HR 14 Days #28 tablet 09/13/18 Unknown Rx Levothyroxine 88 mcg PO DAILY #30 09/13/18 Unknown Rx Levothyroxine [Synthroid] 88 mcg PO DAILY@0600 tablet 09/13/18 Unknown Rx Loratadine 10 mg PO DAILY #30 09/13/18 Unknown Rx Loratadine (Nf) [Claritin (Nf)] 10 mg PO DAILY tablet 09/13/18 Unknown Rx Montelukast 10 mg PO HS #30 09/13/18 Unknown Rx Montelukast [Singulair] 10 mg PO QHS tablet 09/13/18 Unknown Rx Pantoprazole [Protonix] 40 mg PO QDAY #30 tablet 09/13/18 Unknown Rx Pravastatin 40 mg PO HS #30 09/13/18 Unknown Rx Pravastatin [Pravachol] 40 mg PO QHS tablet 09/13/18 Unknown Rx Spiriva 18 mcg IH DAILY #30 09/13/18 Unknown Rx Ibuprofen [Motrin 800 MG tab] 800 mg PO Q8HR PRN #20 tablet 01/21/19 Unknown Rx traMADoL [Ultram] 50 mg PO Q6HR PRN #14 tablet 01/21/19 Unknown Rx Ketorolac [Toradol] 10 mg PO Q6H PRN #14 tablet 03/18/20 Unknown Rx Active Meds: Active Medications Acetaminophen (Acetaminophen 325 Mg Tab) 650 mg PO Q4H PRN PRN Reason: Pain MILD(1-3)/Fever >100.5/GONZALEZ Albuterol (Albuterol 2.5 Mg/3 Ml Nebu) 2.5 mg IH Q4HRT PRN PRN Reason: Shortness Of Breath Hydromorphone HCl (Hydromorphone 1 Mg/1 Ml Inj) 0.5 mg IV Q23H PRN PRN Reason: Pain , Severe (7-10) Levetiracetam (Levetiracetam 500 Mg/5 Ml Oral Liqd) 500 mg PO BID [facility] Last Admin: 05/05/21 22:00 Dose: 500 mg Documented by: Levothyroxine Sodium (Levothyroxine 88 Mcg Tab) 88 mcg PO DAILY@0600 [facility] Last Admin: 05/06/21 06:00 Dose: 88 mcg Documented by: Miscellaneous Medication (Elmiron) 100 mg PO TID [facility] Last Admin: 05/06/21 08:32 Dose: Not Given Documented by: Montelukast Sodium (Montelukast 10 Mg Tab) 10 mg PO QHS [facility] Last Admin: 05/05/21 22:00 Dose: 10 mg Documented by: Ondansetron HCl (Ondansetron 4 Mg/2 Ml Inj) 4 mg IV Q8H PRN PRN Reason: Nausea And Vomiting Oxycodone/Acetaminophen (Oxycodone /Acetaminophen 5-325mg Tab) 1 tab PO Q16H PRN PRN Reason: Pain, Moderate (4-6) Last Admin: 05/06/21 07:46 Dose: 1 tab Documented by: Pantoprazole Sodium (Pantoprazole 40 Mg Tab) 40 mg PO QDAY [facility] Pravastatin Sodium (Pravastatin 40 Mg Tab) 40 mg PO QHS [facility] Last Admin: 05/05/21 22:00 Dose: 40 mg Documented by: Sodium Chloride (Sodium Chloride 0.9% 10 Ml Flush Syringe) 10 ml IV BID [facility] Last Admin: 05/05/21 22:00 Dose: 10 ml Documented by: Sodium Chloride (Sodium Chloride 0.9% 10 Ml Flush Syringe) 10 ml IV PRN PRN PRN Reason: LINE FLUSH Tiotropium [place] (Tiotropium 18 Mcg Cap Inhalation) 1 puff IH Q24HRT [facility] Tramadol HCl (Tramadol 50 Mg Tab) 50 mg PO Q6HR PRN PRN Reason: PAIN Last Admin: 05/05/21 22:31 Dose: 50 mg Documented by: Physical Examination - Vital Signs Vital Signs: Vital Signs Pulse Pulse Ox 86 100 05/05/21 11:22 05/05/21 11:22 - Constitutional General appearance: uncomfortable - EENT EENT: Present: PERRL, mucous membranes moist - Respiratory Respiratory: Present: lungs clear, rhonchi - Cardiovascular Cardiovascular: Present: regular rate, normal S1, normal S2 Extremities: Present: no peripheral edema bilatateraly, no clubbing, cyanosis - Gastrointestinal Gastrointestinal: Present: normoactive bowel sounds - Integumentary Integumentary: Present: normal - Neurologic Cranial nerve examination: PERRL, EOMI, intact Speech examination: intact Sensorimotor examination: intact Detailed motor examination: grossly full strength in Results - Laboratory Findings CBC and BMP: 05/05/21 12:16 05/06/21 04:16 Abnormal Lab Findings: Abnormal Labs 05/05/21 05/05/21 05/05/21 12:16 12:16 12:16 Lymph % (Auto) 38.4 H Eos % (Auto) 13.8 H Eos # (Auto) 0.7 H Seg Neutrophils % 39.7 L Potassium Chloride 109.0 H Calcium Ammonia 15.0 L Total Protein 6.1 L Salicylates Acetaminophen 05/05/21 05/05/21 05/06/21 12:16 12:16 04:16 Lymph % (Auto) Eos % (Auto) Eos # (Auto) Seg Neutrophils % Potassium 3.4 L Chloride 110.6 H Calcium 7.6 L Ammonia Total Protein Salicylates < 0.3 L Acetaminophen 5.0 L Assessment and Plan Assessment and Plan 45 YO Female with Obesity Hypoventilation Syndrome, SLE, Mild Intermittent Asthma, Seizure Disorder not currently taking AED, HLD, Hypothyroidism Nicotine Dependence presents to ED for evaluation. Patient has diminished cognition at the time my evaluation is unable to provide history. Patient history provided by EMS staff, ED staff, as well as the patient's daughter who was made available by telephone for interview. As per family the patient was preparing herself for yarsani when she experienced a seizure. - Patient Problems Break through seizure -pt. is with hx of seizure since 14 ys old with family hx of seizure -stopped medication 3 years ago -allergic to Topamax - Ct brain is unremarkable -UDS is negative -Started on Keppra -MRI Brain with gd -EEG is pending -Avoid Ultram due to side of increase seizure -Seizure precautions, no driving -aspiration precautions, -fall precautions, - Keppra therapy loading in the emergency department, -continue Keppra twice daily, -neuro check, # Acute encephalopathy # Recurrent headache -CT scan head, - seizure precautions, -neuro check, -aspiration precautions, - supportive care. # Recurrent headache -with hx of migraine. -suggest fiorcet prn # Asthma -No active exacerbation at this time, continue medical management. # Hx of Lupus -followed by Rheumatology # Obesity hypoventilation syndrome -Balanced diet, increase physical activity at discharge, outpatient pulmonary follow-up for sleep study. # Hypothyroidism -Continue Synthroid therapy, continue medical management. # GERD (gastroesophageal reflux disease) -PPI therapy, supportive care # DVT prophylaxis -SCD to bilateral lower extremities while in bed # Advance care planning -Disease education conducted, care plan discussed, diagnoses discussed, prognosis discussed, treatment plan discussed. Patient and family acknowledge understanding and agreement with care plan, +30 minutes. PLAN 1- maintain keppra 500 mg bid 2- seizure precaution no driving 3- Fiorcet prn for headache 4- Avoid Ultram due to side of increase Seizure 5- Brain MRI and EEG will follow
[2021-05-06] MEDS ORDERED: SPIRIVA 18 MCG IH SCH (10:00)
[2021-05-06] MEDS ORDERED: PANTOPRAZOLE 40 MG TAB PO SCH (10:00)
[2021-05-06] MEDS ORDERED: LEVOTHYROXINE 88 MCG PO SCH (10:00)
[2021-05-06] MEDS ORDERED: POTASSIUM CHLORIDE ER 20 MEQ TAB PO NR (10:00)
[2021-05-06] MEDS: levETIRAcetam 500 MG/5 ML ORAL LIQD PO SCH (10:32)
[2021-05-06] MEDS ORDERED: BUTALB/ACETAMINOPHEN/CAFFEINE TAB PO PRN (12:38)
[2021-05-06 13:53] VITALS: BP 110/63
--- NOTE | 2021-05-07 14:28 | Electrocardiograph Report ---
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
== END 2021-05-06 13:45 | disposition left against medical advice (07) ==
LOC: ED 11:16 → 3A 18:25 → OBSVTOIN 05-06 13:16 → INTOOBSV 05-06 13:16
PROVIDERS: ADMIT Internal Medicine; ATTEND Internal Medicine
DX: G93.40 Encephalopathy, unspecified (principal); G40.901 Epilepsy, unspecified, not intractable, with status epilepticus; J45.909 Unspecified asthma, uncomplicated; E66.2 Morbid (severe) obesity with alveolar hypoventilation; E03.9 Hypothyroidism, unspecified; K21.9 Gastro-esophageal reflux disease without esophagitis; F17.210 Nicotine dependence, cigarettes, uncomplicated; E87.6 Hypokalemia; E78.00 Pure hypercholesterolemia, unspecified; R51.9 Headache, unspecified; N30.10 Interstitial cystitis (chronic) without hematuria; M32.9 Systemic lupus erythematosus, unspecified; Z87.442 Personal history of urinary calculi; Z68.33 Body mass index [BMI] 33.0-33.9, adult; Z90.710 Acquired absence of both cervix and uterus; Z79.899 Other long term (current) drug therapy; Z98.890 Other specified postprocedural states; Z86.711 Personal history of pulmonary embolism
CPT/HCPCS: 36415; 70450; 71045; 72125; 73521; 80048; 80076; 80177; 80307; 81001; 82140; 83735; 84443; 84484; 84703; 85025; 87086; 93005; 96361; 96365; 96366; 96367; 96375; 99285; G0378; J0696; J1885; J1953; J7030; J7060; 80320; Q0162; G0480; J2060

== ENCOUNTER 2021-08-06 19:35 | Emergency (ER) | payer OTHER ==
[2021-08-06] MEDS ORDERED: IPRATROPIUM 0.02% NEBU 2.5 ML IH ONE ×2 (19:50→19:51)
[2021-08-06] MEDS ORDERED: ONDANSETRON 4 MG/2 ML INJ IV ONE (19:50)
[2021-08-06] MEDS ORDERED: ALBUTEROL 2.5 MG/3 ML NEBU IH ONE ×2 (19:50→19:51)
[2021-08-06] MEDS ORDERED: MORPHINE 4 MG/1 ML INJ IV ONE ×2 (19:50→21:43)
[2021-08-06 20:15] LABS: Basophils % (Auto) 0.5 % (0.0-1.8); Eosinophils # (Auto) 0.3 K/mm3 (0.0-0.4); Eosinophils % (Auto) 4.4 % (0.0-4.3); Hematocrit 32.7 % (30.3-42.9); Hemoglobin 11.5 gm/dl (10.1-14.3); Lymphocytes # (Auto) 3.7 K/mm3 (1.2-5.4); Lymphocytes % (Auto) 48.4 % (13.4-35.0); Mean Corpuscular HGB Conc 35 % (30-34); Mean Corpuscular Volume 87 fl (79-97); Monocytes # (Auto) 0.5 K/mm3 (0.0-0.8); Monocytes % (Auto) 6.5 % (0.0-7.3); Platelet Count 284 K/mm3 (140-440); Red Blood Count 3.79 M/mm3 (3.65-5.03); Red Cell Distribution Width 14.1 % (13.2-15.2)
[2021-08-06 20:30] LABS: BUN/Creatinine Ratio 13; Blood Urea Nitrogen 12 mg/dL (7-17); Calcium 8.5 mg/dL (8.4-10.2); Hemolysis Index 6
[2021-08-06] MEDS ORDERED: KETOROLAC 30 MG/1 ML INJ IV ONE (21:43)
--- NOTE | 2021-08-06 21:43 | XRay Report ---
CHEST 1 VIEW INDICATION / CLINICAL INFORMATION: sob. COMPARISON: 05/05/2021 FINDINGS: SUPPORT DEVICES: None. HEART / MEDIASTINUM: No significant abnormality. LUNGS / PLEURA: No significant pulmonary or pleural abnormality. No pneumothorax. ADDITIONAL FINDINGS: No significant additional findings. IMPRESSION: 1. No acute findings. Signer Name: Waldemar Nicole MD Signed: 08/06/2021 9:39 PM Workstation Name: [id number]
[2021-08-06 21:58] VITALS: BP 128/83
--- NOTE | 2021-08-06 22:03 | Emergency Department Report ---
ED Shortness of Breath HPI - General Chief Complaint: Dyspnea/Respdistress Stated Complaint: YASSINE Time Seen by Provider: 08/06/21 19:50 Source: EMS Mode of arrival: Stretcher Limitations: No Limitations - History of Present Illness Initial Comments: 45-year-old female the past medication of lupus, seizures, hypothyroidism, and previous renal sufficiency presents to the hospital complaints of shortness of breath last 3 hours worse the last 45 minutes. Patient knows to be in respiratory distress upon EMS arrival. She was treated with albuterol 5 mg, magnesium 2 g, and Solu-Medrol 125 mg in route to the hospital with only minimal improvement. Patient reports back, headache, chest pain with cough. No fever reported. Patient has been vaccinated for COVID including booster. History of 3 intubations. 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 - Related Data Home Medications Medication Instructions Recorded Confirmed Last Taken Elmiron 100 mg PO TID 12/05/17 09/12/18 09/10/18 Previous Rx's Medication Instructions Recorded Last Taken Type Advair 500-50 Diskus 1 dose INHALATION BID 30 Days 09/13/18 Unknown Rx Desmopressin 0.2 mg PO HS 30 Days 09/13/18 Unknown Rx Desmopressin [Ddavp] 0.2 mg PO QHS tablet 09/13/18 Unknown Rx Elmiron 100 mg PO TID 09/13/18 Unknown Rx Ibuprofen [Motrin] 800 mg PO Q12HR 14 Days #28 tablet 09/13/18 Unknown Rx Levothyroxine 88 mcg PO DAILY #30 09/13/18 Unknown Rx Levothyroxine [Synthroid] 88 mcg PO DAILY@0600 tablet 09/13/18 Unknown Rx Loratadine 10 mg PO DAILY #30 09/13/18 Unknown Rx Loratadine (Nf) [Claritin (Nf)] 10 mg PO DAILY tablet 09/13/18 Unknown Rx Montelukast 10 mg PO HS #30 09/13/18 Unknown Rx Montelukast [Singulair] 10 mg PO QHS tablet 09/13/18 Unknown Rx Pantoprazole [Protonix] 40 mg PO QDAY #30 tablet 09/13/18 Unknown Rx Pravastatin 40 mg PO HS #30 09/13/18 Unknown Rx Pravastatin [Pravachol] 40 mg PO QHS tablet 09/13/18 Unknown Rx Spiriva 18 mcg IH DAILY #30 09/13/18 Unknown Rx Ketorolac [Toradol] 10 mg PO Q6H PRN #14 tablet 03/18/20 Unknown Rx Benzonatate [Tessalon Perles] 100 mg PO Q8HR PRN #20 cap 08/06/21 Unknown Rx Ibuprofen [Motrin 800 MG tab] 800 mg PO Q8HR PRN #20 tablet 08/06/21 Unknown Rx predniSONE [Deltasone] 40 mg PO DAILY 5 Days tab 08/06/21 Unknown Rx Allergies Allergy/AdvReac Type Severity Reaction Status Date / Time granisetron [From Kytril] Allergy Angioedema Verified 05/06/21 10:39 topiramate [From Topamax] Allergy Angioedema Verified 05/06/21 10:39 ED Review of Systems ROS: Stated complaint: YASSINE Other details as noted in HPI Comment: All other systems reviewed and negative ED Past Medical Hx - Past Medical History Hx Congestive Heart Failure: No Hx Diabetes: No Hx Renal Disease: Yes Hx Seizures: Yes Hx Asthma: Yes Hx COPD: No Additional medical history: Hypokalemia, hypercholesterolemia, hypothyroidism, interstitial cystitis, lupus - Surgical History Additional Surgical History: Hysterectomy 1993, kidney stone, thyroidectomy. Pulmonary embolism 2014 - Social History Smoking Status: Current Every Day Smoker Substance Use Type: None - Medications Home Medications: Home Medications Medication Instructions Recorded Confirmed Last Taken Type Elmiron 100 mg PO TID 12/05/17 09/12/18 09/10/18 History Advair 500-50 Diskus 1 dose INHALATION BID 30 Days 09/13/18 Unknown Rx Desmopressin 0.2 mg PO HS 30 Days 09/13/18 Unknown Rx Desmopressin [Ddavp] 0.2 mg PO QHS tablet 09/13/18 Unknown Rx Elmiron 100 mg PO TID 09/13/18 Unknown Rx Ibuprofen [Motrin] 800 mg PO Q12HR 14 Days #28 tablet 09/13/18 Unknown Rx Levothyroxine 88 mcg PO DAILY #30 09/13/18 Unknown Rx Levothyroxine [Synthroid] 88 mcg PO DAILY@0600 tablet 09/13/18 Unknown Rx Loratadine 10 mg PO DAILY #30 09/13/18 Unknown Rx Loratadine (Nf) [Claritin (Nf)] 10 mg PO DAILY tablet 09/13/18 Unknown Rx Montelukast 10 mg PO HS #30 09/13/18 Unknown Rx Montelukast [Singulair] 10 mg PO QHS tablet 09/13/18 Unknown Rx Pantoprazole [Protonix] 40 mg PO QDAY #30 tablet 09/13/18 Unknown Rx Pravastatin 40 mg PO HS #30 09/13/18 Unknown Rx Pravastatin [Pravachol] 40 mg PO QHS tablet 09/13/18 Unknown Rx Spiriva 18 mcg IH DAILY #30 09/13/18 Unknown Rx Ketorolac [Toradol] 10 mg PO Q6H PRN #14 tablet 03/18/20 Unknown Rx Benzonatate [Tessalon Perles] 100 mg PO Q8HR PRN #20 cap 08/06/21 Unknown Rx Ibuprofen [Motrin 800 MG tab] 800 mg PO Q8HR PRN #20 tablet 08/06/21 Unknown Rx predniSONE [Deltasone] 40 mg PO DAILY 5 Days tab 08/06/21 Unknown Rx ED Physical Exam - General Limitations: No Limitations - Other Other exam information: General: Moderate respiratory distress Head: Atraumatic Eyes: normal appearance ENT: Moist mucous membranes Neck: Normal appearance, no midline tenderness Chest: Significant wheezing, tachypnea, accessory muscle use CV: Tachycardic regular rhythm Abdomen: Soft, normal bowel sounds, nontender, nondistended, no rebound or guarding Back: Normal inspection Extremity: Normal inspection, full range of motion, no calf tenderness or leg edema Neuro: Alert O x 3, no facial asymmetry, speech clear, no gross motor sensory deficit Psych: Appropriate behavior Skin: No rash ED Course Vital Signs 08/06/21 08/06/21 19:57 20:03 Pulse Rate [ 110 H Anterior Bilateral] Respiratory 25 H Rate Respiratory 22 Rate [Anterior Bilateral] - Reevaluation(s) Reevaluation #1: 08/06/21 22:05 Improved wheezing. Patient reports feeling better. Nebulizer treatment still in progress ED Medical Decision Making - Lab Data Result diagrams: 08/06/21 20:04 08/06/21 20:04 Lab Results 08/06/21 08/06/21 08/06/21 Range/Units 20:04 20:04 20:04 WBC 7.7 (4.5-11.0) K/mm3 RBC 3.79 (3.65-5.03) M/mm3 Hgb 11.5 (10.1-14.3) gm/dl Hct 32.7 (30.3-42.9) % MCV 87 (79-97) fl MCH 30 (28-32) pg MCHC 35 H (30-34) % RDW 14.1 (13.2-15.2) % Plt Count 284 (140-440) K/mm3 Lymph % (Auto) 48.4 H (13.4-35.0) % Clarke % (Auto) 6.5 (0.0-7.3) % Eos % (Auto) 4.4 H (0.0-4.3) % Baso % (Auto) 0.5 (0.0-1.8) % Lymph # (Auto) 3.7 (1.2-5.4) K/mm3 Clarke # (Auto) 0.5 (0.0-0.8) K/mm3 Eos # (Auto) 0.3 (0.0-0.4) K/mm3 Baso # (Auto) 0.0 (0.0-0.1) K/mm3 Seg Neutrophils % 40.2 (40.0-70.0) % Seg Neutrophils # 3.1 (1.8-7.7) K/mm3 Sodium 140 (137-145) mmol/L Potassium 3.4 L (3.6-5.0) mmol/L Chloride 104.1 (98-107) mmol/L Carbon Dioxide 21 L (22-30) mmol/L Anion Gap 18 mmol/L BUN 12 (7-17) mg/dL Creatinine 0.9 (0.6-1.2) mg/dL Estimated GFR > 60 ml/min BUN/Creatinine Ratio 13 % Glucose 147 H (65-100) mg/dL Calcium 8.5 (8.4-10.2) mg/dL HCG, Qual Negative (Negative) - Radiology Data Radiology results: report reviewed CHEST 1 VIEW INDICATION / CLINICAL INFORMATION: sob. COMPARISON: 05/05/2021 FINDINGS: SUPPORT DEVICES: None. HEART / MEDIASTINUM: No significant abnormality. LUNGS / PLEURA: No significant pulmonary or pleural abnormality. No pneumo thorax. ADDITIONAL FINDINGS: No significant additional findings. IMPRESSION: 1. No acute findings. - Medical Decision Making 45-year-old female presents to the hospital acute asthma exacerbation and muscle skeletal pain and headache with coughing. Labs are unremarkable including normal renal function. Chest x-ray unremarkable as per radiologist read. Patient having dramatic improvement in the ED with further nebulizer treatment Critical Care Time: No Critical care attestation.: If time is entered above; I have spent that time in minutes in the direct care of this critically ill patient, excluding procedure time. ED Disposition Clinical Impression: Acute asthma exacerbation Disposition: HOME / SELF CARE / HOMELESS Is pt being admited?: No Does the pt Need Aspirin: No Condition: Stable Instructions: Asthma, Adult Additional Instructions: Take the medication as prescribed. Follow-up with your doctor or doctor/clinic provided. Return if symptoms worsen as indicated by your discharge instru ctions. Prescriptions: predniSONE [Deltasone] 40 mg PO DAILY 5 Days tab Ibuprofen [Motrin 800 MG tab] 800 mg PO Q8HR PRN #20 tablet PRN Reason: pain Benzonatate [Tessalon Perles] 100 mg PO Q8HR PRN #20 cap PRN Reason: Cough Referrals: ALEXY MOYA MD [Primary Care Provider] - 3-5 Days
== END 2021-08-07 02:54 | disposition home or self-care (01) ==
LOC: ED 19:35
DX: J45.901 Unspecified asthma with (acute) exacerbation (principal); R56.9 Unspecified convulsions; N28.9 Disorder of kidney and ureter, unspecified; Z98.890 Other specified postprocedural states; F17.200 Nicotine dependence, unspecified, uncomplicated; Z79.899 Other long term (current) drug therapy; Z91.09 Other allergy status, other than to drugs and biological substances
CPT/HCPCS: 36415; 71045; 80048; 84703; 85025; 94644; 96374; 96375; 99284; J2270; J2405